=== PATIENT | female | born 1960 | race Caucasian/White ===

== ENCOUNTER 2018-10-30 09:55 | Outpatient (REF) | payer MEDICAID, SELFPAY ==
[2018-10-30 13:16] LABS: Abs Immature Grans 0.01 k/cumm (0.0-0.09); Absolute Basophil Count 0.04 k/cumm (0.0-0.2); Absolute Eosinophil Count 0.23 k/cumm (0.0-0.7); Absolute Lymphocyte Count 2.51 k/cumm (1.2-3.4); Absolute Monocyte Count 0.58 k/cumm (0.11-0.7); Absolute Neutrophil Count 2.27 k/cumm (1.2-6.7); Basophils % 0.7; Eosinophils % 4.1; HCT 39.4 % (36.0-46.0); HGB 12.7 g/dL (12.0-15.5); Immature Grans % 0.2; Lymphocytes % 44.5; Mean Corp. HGB Concentration 32.2 g/dL (32.0-36.0); Mean Corpuscular Hemoglobin 30.2 pg (27.0-33.0); Mean Corpuscular Volume 93.8 fL (80-95); Mean Platelet Volume 10.2 fL (8.0-11.0); Monocytes % 10.3; Neutrophils % 40.2; Platelet Count 311 x1000/uL (130-400); RBC Distribution Width 13.8 % (11.7-14.6); White Blood Cell Count 5.64 k/cumm (4.4-10.8)
[2018-10-30 13:50] LABS: ALT 17 U/L (12-78); AST 11 U/L (15-37); Alkaline Phosphatase 50 U/L (46-116); BUN 18 mg/dL (7-18); Bilirubin, Total 0.4 mg/dL (0.2-1.0); CREATININE 0.81 mg/dL (0.55-1.02); Calcium 9.4 mg/dL (8.5-10.1); Chloride 105 mmol/L (98-107); Glucose 96 mg/dL (70-100); Potassium 4.2 mmol/L (3.5-5.1); Sodium 139 mmol/L (136-145); TSH (W/Ref FT4) 3.15 uIU/mL (0.358-3.74); Total Protein 6.8 g/dL (6.4-8.2)
== END 2018-10-30 10:15 ==
LOC: NCHCN 09:55
PROVIDERS: PCP Nurse Practitioner Family; Visit Provider Nurse Practitioner Family
DX: E03.9 Hypothyroidism, unspecified (principal); D64.9 Anemia, unspecified; D47.3 Essential (hemorrhagic) thrombocythemia
CPT/HCPCS: 80053; 84443; 85025

== ENCOUNTER 2018-10-30 10:14 | Outpatient (CLI) | payer MEDICAID, SELFPAY ==
--- NOTE | 2018-10-30 10:00 | DI.RAD_ITS ---
SYMPTOMS/DIAGNOSIS: CERVICALGIA, M54.2 CERVICAL SPINE: Odontoid, AP, lateral and bilateral oblique views. The odontoid is intact. The lateral masses are well aligned. There is normal alignment of the cervical spine. Mild disc space narrowing is seen at C 4 - 5 and C 5 - 6. Small endplate osteophytes are seen at C 4 - 5 and C 5 - 6 degenerative changes of the facet joints are present. There is very mild narrowing of the right neural foramen at C 4 - 5. No acute fractures or subluxations are seen. The prevertebral soft tissues are unremarkable. IMPRESSION: Mild degenerative changes in the cervical spine.
== END 2018-10-30 10:34 ==
PROVIDERS: PCP Nurse Practitioner Family; Visit Provider Nurse Practitioner Family
DX: M54.2 Cervicalgia (principal); M50.321 Other cervical disc degeneration at C4-C5 level; M50.322 Other cervical disc degeneration at C5-C6 level; M47.812 Spondylosis without myelopathy or radiculopathy, cervical region; E03.9 Hypothyroidism, unspecified; D64.9 Anemia, unspecified; D47.3 Essential (hemorrhagic) thrombocythemia
CPT/HCPCS: 80053; 72050; 84443; 85025

== ENCOUNTER 2018-11-18 00:47 | Outpatient (CLI) | payer MEDICAID, SELFPAY ==
--- NOTE | 2018-11-18 16:47 | DI.MAMMO_ITS ---
SYMPTOM/DIAGNOSIS: SCREENING MAMMO Z12.31 MAMMOGRAM: Mammograms were interpreted according to the usual protocol including computer analysis with CAD system, tomosynthesis and C view imaging. The breast tissue is of moderate radiodensity. There is no mass. There are no suspicious calcifications and there has been no significant interval change when compared with prior images. SUMMARY: No evidence of malignancy, Category 1. Yearly screening mammography is recommended. Breast density catebory B. MQSA ASSESSMENT OF FINDINGS: Negative. Category 1. Patient will receive a letter notifying them of these results. BI-RADS category B. There are scattered areas of fibroglandular density.
== END 2018-11-18 01:07 ==
PROVIDERS: PCP Nurse Practitioner Family; Visit Provider Nurse Practitioner Family
DX: Z12.31 Encounter for screening mammogram for malignant neoplasm of breast (principal)
CPT/HCPCS: 77063; 77067

== ENCOUNTER 2019-06-19 14:55 | Emergency (ER) | payer MEDICAID, SELFPAY ==
[2019-06-19 15:00] VITALS: BP 146/82; PULSE 89; RESP 18; TEMP 36.6; O2SAT 99
[2019-06-19 15:18] LABS: Bilirubin Negative (Negative); Blood Moderate (Negative); Clarity Cloudy (Clear); Glucose Negative (Negative); Ketones 40 mg/dL (Negative); Leukocyte Esterase Large (Negative); Nitrite Negative (Negative); Urobilinogen 0.2 EU/dL (Up TO 0.2)
--- NOTE | 2019-06-19 15:19 | ED.GENADUL_ITS ---
Discharge Plan Disposition Patient Disposition: HOME Condition: Stable Discharge Details Chief Complaint: Urinary Clinical Impression: UTI (urinary tract infection) Primary Care Provider: Rip Isbell ED Provider: Braden Barrios Home Meds and New Rx's Prescriptions: New phenazopyridine [Pyridium] 100 mg tablet 100 mg PO TID 2 Days Qty: 6 RF: 0 cephalexin 500 mg capsule 500 mg PO TID 7 Days Qty: 21 RF: 0 No Action fluticasone propion-salmeterol [Advair Diskus] 250-50 mcg/dose Blister With Device 1 inh INHALATION BID RF: 0 cetirizine 10 mg Tablet 10 mg PO DAILY PRNRF: 0 ibuprofen [IBU] 800 mg Tablet 800 mg PO TID PRNRF: 0 omeprazole 40 mg Capsule,Delayed Release(Dr/Ec) 40 mg PO DAILY RF: 0 bupropion HCl [Wellbutrin SR] 150 MG tablet extended release 12 hr 150 mg PO BID RF: 0 buspirone 15 MG tablet 15 mg PO BID RF: 0 Spiriva with HandiHaler 18 MCG capsule, w/inhalation device 18 mcg Inhalation DAILY RF: 0 albuterol sulfate [Ventolin HFA] 8 GM HFA aerosol inhaler 1 - 2 puff Inhalation Q6H PRN PRNRF: 0 acetaminophen [Tylenol Extra Strength] 500 MG tablet 1,000 mg PO PRN PRNRF: 0 levothyroxine [Synthroid] 50 MCG tablet 50 mcg PO DAILY AM RF: 0 Discharge Instructions Instructions: Urinary Tract Infection in Women (ED) Additional Instructions: May continue small, frequent sips of fluids to maintain hydration. Please take antibiotics as prescribed. May use the prescribed Pyridium as needed for burning and discomfort over 2 days time. Return to the emergency department develop back pain, fever, vomiting, or any other acute concerns. Medical Decision Making 58-year-old female with history of previous urinary tract infections. She pres ents with 5 days of increased frequency and burning with urination that is worsening. She denies fever, back pain, vomiting. Her vital signs are reassuring. Her exam is unremarkable. Urinalysis obtained and consistent with UTI. Will treat a course of Keflex as well as Pyridium. She is stable and appropriate for outpatient management. HPI General Mode of arrival: ambulatory . Date/Time Provider Initiated Documentation: 06/19/19 15:13 . Limitations to Documentation: no limitations . Information obtained by: patient . History of Present Illness 58 year old F presents to the emergency department with the chief complaint of Burning and urgency of urine for 5 days, described as mild, and is localized to the pelvis. Patient reports no radiation. Patient started experiencing this day(s) and it has been constant. No relieving factors improve symptom(s), No exacerbating factors reported . Patient did receive the following treatments prior to arrival, none Related Data Home Medications Medication Instructions Recorded Confirmed Spiriva with HandiHaler 18 mcg INHALATION DAILY tab-cap 06/16/13 06/19/19 bupropion HCl [Wellbutrin SR] 150 mg PO BID tab-cap 06/16/13 06/19/19 buspirone 15 mg PO BID tab-cap 06/16/13 06/19/19 albuterol sulfate [Ventolin HFA] 1 - 2 puff INHALATION Q6H PRN PRN 09/13/13 06/19/19 inhaler acetaminophen [Tylenol Extra 1,000 mg PO PRN PRN 08/12/16 06/19/19 Strength] levothyroxine [Synthroid] 50 mcg PO DAILY AM 11/04/16 06/19/19 cetirizine 10 mg PO DAILY PRN 02/09/19 06/19/19 fluticasone propion-salmeterol 1 inh INHALATION BID 02/09/19 06/19/19 [Advair Diskus] ibuprofen [IBU] 800 mg PO TID PRN 02/09/19 06/19/19 omeprazole 40 mg PO DAILY 02/09/19 06/19/19 cephalexin 500 mg PO TID 7 Days #21 cap 06/19/19 phenazopyridine [Pyridium] 100 mg PO TID 2 Days #6 tab 06/19/19 Previous Rx's Medication Instructions Recorded cephalexin 500 mg PO TID 7 Days #21 cap 06/19/19 phenazopyridine [Pyridium] 100 mg PO TID 2 Days #6 tab 06/19/19 Allergies Allergy/AdvReac Type Severity Reaction Status Date / Time codeine AdvReac Severe Nausea/Head Unverified 06/19/19 15:02 ache iron AdvReac nausea/vomi Unverified 06/19/19 15:02 ting pramipexole di-HCl AdvReac decreased Unverified 06/19/19 15:02 [From Mirapex] sexual function ropinirole HCl [From Requip] AdvReac nausea/vomi Unverified 06/19/19 15:02 ting/headac he perfumes AdvReac SOB Uncoded 06/19/19 15:02 General Stated Complaint: Urinary SHIRIN: 4 Review of Systems Narrative: No vomiting or back pain. States that she is otherwise been well. No difficulty breathing. [facility] Medical History Abnormal cervical Papanicolaou smear (Acute) Acute reaction to situational stress (Acute) Allergic rhinitis Anemia (Chronic) Cervicalgia (Acute) COPD (chronic obstructive pulmonary disease) Dental caries (Acute) Depression with anxiety (Acute) GERD (gastroesophageal reflux disease) (Chronic) Goiter (Acute) Knee pain, chronic (Acute) Left hip pain (Acute) Lumbar back pain (Acute) TAYE (obstructive sleep apnea) (Chronic) Periodic limb movement Thrombocytosis (Acute) Unspecified hemorrhoids with other complication (Acute) Vertigo (Acute) Surgical History H/O partial thyroidectomy (Acute) History of carpal tunnel release of both wrists (Acute) Hx of cataract surgery (Chronic) Hx of section (Chronic) Hx of tonsillectomy (Chronic) S/P correction of deviated nasal septum (Acute) Social History (Updated 02/15/19 @ 12:00 by Celia Cardenas RN) Smoking/Tobacco Use Status: Former Tobacco Use Alcohol Intake: never Drug use: Never Substance use type: does not use Household members: spouse Housing: house Number of Children: 1 current occupation: [employer] What is your relationship status?: Panel score (0-1 are the most socially isolated patients): 1 What type of physical activity do you participate in: none Do you feel safe at home: Yes Do you feel safe in your relationship?: Yes Exam Narrative Exam Narrative: GEN: awake, alert, oriented 3. Pleasant, well groomed, interactive. HEAD: Normocephalic, atraumatic ENT: Mucous membranes moist, oropharynx unremarkable, External ear exam unremarkable EYES: PERRL, EOMI NECK: Full ROM, no CORRINE, no menigismus CHEST/RESP: Nontender, clear to auscultation bilateral, no wheeze/rhonchi/rales CARDIOVASCULAR: RRR, no murmur, rub gertrude. 2+ Rad pulse bilateral ABDOMEN: Soft, nontender, no mass. +Bowel sounds EXT: Full ROM, no edema, no rash Neuro: Grossly normal neurologic exam, conversant, interactive. Psych: Speech fluent, thoughts congruent, affect normal Course Vital Signs Vital signs: Vital Signs Temperature 36.6 C 06/19/19 15:00 Pulse 89 06/19/19 15:00 Respiratory Rate 18 06/19/19 15:00 Blood Pressure 146/82 H 06/19/19 15:00 Pulse Oximetry 99 06/19/19 15:00 Temperature 36.6 C 06/19/19 15:00 Temperature Source Skin 06/19/19 15:00 Pulse 89 06/19/19 15:00 Respiratory Rate 18 06/19/19 15:00 Respiratory Effort Non-Labored 06/19/19 15:04 Blood Pressure 146/82 H 06/19/19 15:00 Blood Pressure Position Sitting 06/19/19 15:00 Pulse Oximetry 99 06/19/19 15:00 Oxygen Delivery Method Room Air 06/19/19 15:00 Oxygen Flow Rate 0 06/19/19 15:00 Pain Level 8 06/19/19 15:00
[2019-06-19 15:29] LABS: WBC >50 HPF (0-5)
[2019-06-19 15:30] LABS: Bacteria Many HPF (Negative); C & S Indicated? Yes; Crystals Negative HPF (Negative)
== END 2019-06-19 15:38 | disposition home or self-care (01) ==
PROVIDERS: Emergency Provider Emergency Medicine; PCP Nurse Practitioner Family
DX: N39.0 Urinary tract infection, site not specified (principal); B96.20 Unspecified Escherichia coli [E. coli] as the cause of diseases classified elsewhere; Z87.440 Personal history of urinary (tract) infections; J44.9 Chronic obstructive pulmonary disease, unspecified; Z87.891 Personal history of nicotine dependence
CPT/HCPCS: 87077; 99283; 81003; 81015; 87086; 87186

== ENCOUNTER 2019-12-27 11:18 | Outpatient (REF) | payer MEDICAID, SELFPAY ==
[2019-12-27 19:04] LABS: HCT 39.2 % (36.0-46.0); HGB 12.6 g/dL (12.0-15.5); Mean Corp. HGB Concentration 32.1 g/dL (32.0-36.0); Mean Corpuscular Hemoglobin 30.2 pg (27.0-33.0); Platelet Count 324 x1000/uL (130-400); RBC 4.17 m/cumm (4.00-5.20); RBC Distribution Width 13.6 % (11.7-14.6); White Blood Cell Count 5.81 k/cumm (4.4-10.8)
[2019-12-27 19:23] LABS: ALT 17 U/L (14-59); AST 13 U/L (15-37); Albumin 3.9 g/dL (3.4-5.0); Alkaline Phosphatase 47 U/L (46-116); Anion Gap 9.5 mmol/L (3-11); BUN 19 mg/dL (7-18); Bilirubin, Total 0.4 mg/dL (0.2-1.0); CO2 25.5 mmol/L (21.0-32.0); CREATININE 0.81 mg/dL (0.55-1.02); Chloride 110 mmol/L (98-107); Glucose 93 mg/dL (74-106); Magnesium 1.8 mg/dL (1.8-2.4); Potassium 3.9 mmol/L (3.5-5.1); Sodium 145 mmol/L (136-145); TSH (W/Ref FT4) 1.41 uIU/mL (0.36-3.74); Total Protein 6.6 g/dL (6.4-8.2)
== END 2019-12-27 11:38 ==
LOC: NCHCN 11:18
PROVIDERS: PCP Nurse Practitioner Family; Visit Provider Nurse Practitioner Family
DX: E03.9 Hypothyroidism, unspecified (principal); G47.61 Periodic limb movement disorder
CPT/HCPCS: 80053; 85027; 83735; 84443

== ENCOUNTER 2020-08-14 13:03 | Outpatient (REF) | payer MEDICAID, SELFPAY ==
--- NOTE | 2020-08-14 11:30 | PAPFT_PTH ---
PATIENT: Lyla Payne LOC: [facility] U#:[id number] AGE/SX: 59/F ROOM: RE08/14/[address]: Rip Isbell : 1960 BED: DIS: 08/14/2020 SPEC #: [id number] RECD: 08/14/20 17:16 STATUS: JONAS REQ #: [id number] JAYLEN: 08/14/20 11:[address]: Rip Isbell DEPT: [facility] Cytology RECD BY: Nataliia Dial Tissues: 1 - CX/ENDOCX FOR PAP SMEARS Procedures: PAP THIN PREP/UVM Screening HPV DNA PROBE Comments: [id number]
[2020-08-14 15:58] LABS: HGB 12.4 g/dL (11.2-15.7); MCH 29.7 pg (27.0-33.0); MCHC 31.8 % (32.0-36.0); MCV 93.3 fL (80-95); MPV 10.5 fL (8.0-11.0); Platelet Count 305 10^3/uL (130-400); RBC 4.18 10^6/uL (3.93-5.22); RDW 13.2 % (11.7-14.6); RDW-SD 45.3 fL
[2020-08-14 16:10] LABS: Bilirubin Negative (Negative); Blood Small (Negative); Clarity Clear (Clear); Glucose Negative (Negative); Ketones Negative (Negative); Leukocyte Esterase Trace (Negative); Nitrite Negative (Negative); Urobilinogen 0.2 EU/dL (Up TO 0.2)
[2020-08-14 16:19] LABS: ALT 18 U/L (14-59); AST 13 U/L (15-37); Alkaline Phosphatase 49 U/L (46-116); Anion Gap 9.4 mmol/L (3-11); BUN 21 mg/dL (7-18); Bilirubin, Total 0.4 mg/dL (0.2-1.0); CO2 26.6 mmol/L (21.0-32.0); CREATININE 0.8 mg/dL (0.55-1.02); Calcium 9.2 mg/dL (8.5-10.1); Chloride 108 mmol/L (98-107); Glucose 112 mg/dL (74-106); Sodium 144 mmol/L (136-145); TSH (W/Ref FT4) 1.76 uIU/mL (0.36-3.74); Total Protein 6.9 g/dL (6.4-8.2)
[2020-08-14 16:32] LABS: Bacteria Negative HPF (Negative); Crystals Negative HPF (Negative); Epithelial Cells Few HPF (Negative); Mucus Negative (Negative); Other Cells Rare Renal (Negative); RBC 0-2 HPF (0-2); WBC 0-2 HPF (0-5)
[2020-08-14 16:33] LABS: C & S Indicated? Yes; Casts Negative LPF (Negative)
[2020-08-15 10:44] LABS: HIV-1/2 Ag & Ab Screen Negative (Negative)
[2020-08-15 10:54] LABS: Hepatitis C Ab w Rflx HCV PCR Negative (Negative)
== END 2020-08-14 13:04 | disposition home or self-care (01) ==
LOC: NCHCN 13:03
PROVIDERS: PCP Nurse Practitioner Family; Visit Provider Nurse Practitioner Family
DX: Z12.4 Encounter for screening for malignant neoplasm of cervix (principal); Z11.51 Encounter for screening for human papillomavirus (HPV); Z00.00 Encounter for general adult medical examination without abnormal findings; D47.3 Essential (hemorrhagic) thrombocythemia; E03.9 Hypothyroidism, unspecified; Z68.31 Body mass index [BMI] 31.0-31.9, adult; Z11.59 Encounter for screening for other viral diseases; Z11.4 Encounter for screening for human immunodeficiency virus [HIV]; R82.998 Other abnormal findings in urine
CPT/HCPCS: 80053; 85027; 86803; 87389; 88142; 81003; 81015; 84443; 87086; 87624

== ENCOUNTER 2021-07-04 01:03 | Outpatient (CLI) | payer MEDICAID, SELFPAY ==
--- NOTE | 2021-07-04 14:02 | DI.US_ITS ---
APPROVED REPORT EXAM: Comprehensive 2D, Doppler, and color-flow Echocardiogram Patient Location: Out-Patient Applications Administrator: Zaynab Puckett RDCS (AE) Indications: Heart Murmur Other Information Study Quality: Adequate Conclusion Normal left ventricular wall thickness and chamber size. Estimated ejection fraction is 60%. Wall m otion is normal Normal right ventricular size and systolic function Both atria are normal in size Trileaflet aortic valve without stenosis or regurgitation Moderate mitral annular calcification. Moderate mitral regurgitation Normal tricuspid valve with trace regurgitation. Right ventricular systolic pressure could not be es timated Mildly dilated ascending aorta measuring 3.62 cm Wall motion Left Ventricle The left ventricle is normal size. The left ventricular systolic function is normal. The left ventric ular ejection fraction is within the normal range. There is normal left ventricular wall thickness. T here is normal LV segmental wall motion. There is no ventricular septal defect visualized. LVEF is 60 %. Right Ventricle The right ventricle is normal size. The right ventricular systolic function is normal. Atria The left atrium size is normal. The right atrium size is normal. The interatrial septum is intact wit h no evidence for an atrial septal defect. Aortic Valve The aortic valve is normal in structure. Aortic valve is trileaflet. There is no aortic valvular sten osis. No aortic regurgitation is present. Mitral Valve Moderate mitral annular calcification. No evidence of mitral valve stenosis. Moderate mitral regurgit ation. Mitral regurgitation jet is eccentrically directed. Tricuspid Valve The tricuspid valve is normal in structure. There is no tricuspid valve stenosis. Trace tricuspid reg urgitation. Pulmonic Valve The pulmonary valve is normal in structure. There is no pulmonic valvular stenosis. Trace pulmonic re gurgitation. Great Vessels The aortic root is normal in size. The ascending aorta is mildly dilated. Aortic arch is normal in ca liber. IVC is normal in size and collapses >50% with inspiration. Pericardium There is no pericardial effusion. 2D Dimensions IVSD d PLAX 0.89 cm F: 0.6-1.0 LV Vol A2C d MOD 95.6 mL LVPW d PLAX 0.89 cm F: 0.6 - 1.0 LV Vol A4C d MOD 120.5 mL LVID d PLAX 4.70 cm F: 3.8 - 5.2 LA vol/ BSA A2C s A-L 40.0 mL/m2 LVDs 3.20 cm F: 2.2 - 3.5 LA vol/ BSA A4C s A-L 33.1 mL/m2 Ao Root d 2.92 cm F: 2.7 - 3.3 LA Vol/ BSA Biplane s A-L 37.0 mL/m2 RA Area A4C 9.55 cm2 LA Area A4C s MOD 17.94 cm2 RA Vol/ BSA A4C s A-L 10.9 mL/m2 LA Area A2C s MOD 20.05 cm2 Ao Asc Diam d 3.62 cm F: 2.3 - 3.1 LV EF A4C MOD 58.5 % LV EF Teichholz 59.8 % LV EF A2C MOD 59.4 % LVEF (Cabrales's) 57.44 % F: 54 - 74 LV EF Biplane MOD 57.4 % LV Volume 89.21 mL F: 46 - 106 SV 63.24 mL LV Volume Index 55.40 mL/m2 F: 29 - 61 SV Index 39.24 mL/m2 LV Vol Biplane MOD 110.1 mL FS 31.75 % M-Mode TAPSE 2.55 cm (M/F) >1.7 LV Diastology MV E' medial 0.088 (>0.07 m/s) E/A Ratio 1.1 LV E/e MED 7.85 (<14) MV E Vmax 0.69 (0.4-1.3 m/s) MV E' lateral 0.087 (>0.1 m/s) MV A Vmax 0.65 (0.4-1.3 m/s) LV E/e LAT 7.95 (<14) MV E/A Ratio 1.01 MV E/E' medial 7.88 MV E/E' lateral 7.99 Aortic Valve LVOT Area 3.40 cm2 AoV Area Vmax 2.65 cm2 LVOT Vmax 1.01 m/s AoV Area/ BSA (Vmax) 1.65 cm2/m2 LVOT Mean Gasper. 0.59 m/s ABHILASH Mean Gasper. 2.18 cm2 LVOT Peak Grad 4.1 mmHg ABHILASH Mean Gasper. Index 1.36 cm2/m2 LVOT Mean Grad 1.7 mmHg LVOT VTI 0.181 m LVOT Diam s 2.05 cm AoV Vmax 1.29 m/s Velocity Ratio 0.78 AoV Mean Gasper. 0.91 m/s AoV Peak Grad 6.7 mmHg LVOT SV 61.68 mL AoV Mean Grad 3.8 mmHg AoV VTI 0.245 m AoV Area VTI 2.51 cm2 AoV Area/ BSA (VTI) 1.56 cm/m2 Mitral Valve MV DT 260 (160-240 msec) MR PISA Radius 0.47 cm MV PHT 75 msec MR Aliasing Velocity 0.35 m/s MV Area PHT 2.92 cm2 MR PISA 1.40 cm2 MV VTI 0.251 m MV VTI Annulus 0.266 m MV Area VTI 2.62 (4.0-6.0 cm2) Pulmonary Valve PV Vmax 1.35 (0.5-1.5 m/s) RVOT Peak Gr. 3.10 mmHg PV Peak Grad 7.3 mmHg RVOT Mean Gr. 1.60 mmHg PV Mean Grad 3.0 mmHg RVOT VTI 0.193 m PV VTI 0.223 m RVOT Vmax 0.88 m/s
== END 2021-07-04 01:23 ==
PROVIDERS: PCP Nurse Practitioner Family; Visit Provider Nurse Practitioner
DX: R01.1 Cardiac murmur, unspecified (principal); I34.0 Nonrheumatic mitral (valve) insufficiency; I77.810 Thoracic aortic ectasia
CPT/HCPCS: 93306

== ENCOUNTER 2021-08-21 17:00 | Outpatient (REF) | payer MEDICAID, SELFPAY ==
[2021-08-21 21:32] LABS: HCT 39.5 % (36.0-46.0); HGB 12.3 g/dL (11.2-15.7); MCH 29.3 pg (27.0-33.0); MCHC 31.1 % (32.0-36.0); MPV 10.1 fL (8.0-11.0); Platelet Count 313 10^3/uL (130-400); RDW 13.1 % (11.7-14.6)
[2021-08-21 22:01] LABS: D-Dimer 793 ng/mlFEU (<500)
== END 2021-08-21 17:01 | disposition home or self-care (01) ==
LOC: LBN 17:00
PROVIDERS: PCP Nurse Practitioner Family; Visit Provider Nurse Practitioner Family
DX: M79.89 Other specified soft tissue disorders (principal); M79.662 Pain in left lower leg
CPT/HCPCS: 85027; 85379

== ENCOUNTER → 2021-08-22 09:08 | Outpatient (CLI) | payer MEDICAID, SELFPAY ==
--- NOTE | 2021-08-22 | DI.US_ITS ---
Exam(s) US LOWER EXTREMITY VENOUS LT EXAM: US LOWER EXTREMITY VENOUS LT CLINICAL HISTORY: PAIN IN LT LOWER LEG, M79.662, SWELLING OF LT LEG, M79.89 TECHNIQUE: Grayscale, color, and doppler imaging of the deep venous system of the left lower extremi ty was performed. COMPARISON: US US ECHOCARDIOGRAM from 07/04/2021 FINDINGS: There is no evidence of intraluminal thrombus and there is normal compression and augmentation demons trated within the common femoral vein, femoral vein, and popliteal vein. In the ipsilateral calf the interrogated veins also exhibit normal compression/ augmentation properti es. The ipsilateral saphenofemoral junction is patent. IMPRESSION: 1. No evidence of DVT in the left lower extremity. DATA REPOSITORY:
--- NOTE | 2021-08-22 10:42 | DI.RAD_ITS ---
Exam(s) XR KNEE LT 3V AP,LAT,BLAIRE EXAM: XR KNEE LT 3V AP,LAT,BLAIRE CLINICAL HISTORY: PAIN IN LT LOWER LEG, M79.662, SWELLING OF LT LEG, M79.89. TECHNIQUE: 2D digital imaging was performed. COMPARISON: No exams were available for comparison FINDINGS: Four views No evidence of fracture nor obvious joint effusion. There is [id number] narrowing of the lateral compartment with an element of valgus deformity. Also [id number]-[id number] narrowing of the patellofemoral compartment. Medial compartment exhibits normal height . There is a nonexpansile peripherally sclerotic cyst in the medial femoral condyle which is not imm ediately subarticular. IMPRESSION: Significant degenerative changes lateral patellofemoral compartments. Although there is no narrowing of the medial compartment, there is a peripherally sclerotic 1.9 x1.0 cm lucent bone lesion in the m edial femoral condyle (not immediately subarticular), this having benign appearance. DATA REPOSITORY: RADIATION DOSE DELIVERED:
--- OUTSIDE RECORDS SUMMARY | 2021-08-23 15:04 | XMS_ITS ---
:1960 Author Care Team Providers Name Role Phone BON LANI Primary Care Provider [phone] BON LANI Referring Provider [phone] Allergies Code Code System Name Reaction Severity Status Onset 2669 RxNorm Codeine ? ? Active ? 95733 RxNorm Iron ? ? Active ? Perfume ? ? Active ? 056035 RxNorm Requip ? ? Active ? Notes: MIRIPEX Medications Name Status Start Date Stop Date ? ? Advair Diskus 250 mcg-50 mcg/dose powder for inhalation Active ? Not available Inhale 1 puff twice a day by inhalation route. bupropion HCl 150 mg tablet,12 hr sustained-release(smoking dete rrent) Active ? Not available Take 1 tablet twice a day by oral route. cetirizine 10 mg tablet Active ? Not avai lable Take 1 tablet every day by oral route. Flonase Allergy Relief 50 mcg/actuation nasal spray,suspension A ctive ? Not available Proctor 1 spray every day by intranasal route. ibuprofen 800 mg tablet Active ? Not avai lable Take 1 tablet 3 times a day by oral route. levothyroxine 50 mcg tablet Active ? Not available Take 1 tablet every day by oral route. omeprazole 40 mg capsule,delayed release Active ? Not available Take 1 capsule every day by oral route. Proventil HFA 90 mcg/actuation aerosol inhaler Active ? Not available Inhale 2 puffs every 4 hours by inhalation route. rizatriptan 5 mg disintegrating tablet Active ? Not available PLACE 1 TABLET (5 MG) ON TOP OF TONGUE, ALLOW TO DISSOLVE THEN SWALLOW BY TRANSLINGUAL ROUTE ONCE, MAY REPEAT EVERY 2 HRS; MAX 30 MG/24HRS Spiriva with HandiHaler 18 mcg and inhalation capsules Active ? Not available Inhale 1 capsule every day by inhalation route. Problems Name Status Onset Date Source ? Thrombocytosis Active 08/25/2020 ? Hypothyroidism Active 08/25/2020 ? Body Mass Index 30+ - Obesity Active 08/25/2020 ? Anxiety Active 08/25/2020 ? Depressive Disorder Active 08/25/2020 ? Periodic Limb Movement Disorder Active 08/25/2020 ? Carpal Tunnel Syndrome Active 08/25/2020 ? Hemorrhoids Active 08/25/2020 ? Allergic Rhinitis Active 08/25/2020 ? Chronic Obstructive Lung Disease Active 08/25/2020 ? Dental Caries Active 08/25/2020 ? Gastroesophageal Reflux Disease Active 08/25/2020 ? 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 Sleep Apnea Active 08/25/2020 ? Heart Murmur Active 08/25/2020 ? Abnormal Cervical Papanicolaou Smear Active 08/25/2020 ? Thyroidectomy Active 08/25/2020 ? History of Back Pain Active 08/25/2020 ? Knee Pain Active 08/25/2020 ? 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 Acquired Left Hallux Valgus Active 08/28/2020 ? Acquired Right Hallux Valgus Active 08/28/2020 ? Pain in Left Foot Active 08/28/2020 ? Pain in Right Foot Active 08/28/2020 ? Osteoarthritis of Left Foot Active 08/28/2020 ? Osteoarthritis of Right Foot Active 08/28/2020 ? 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 Procedures Date Name Performed by ? 08/25/2020 XR, Foot, 3 or More View [facility] - Radiology [address] [place] [address] [id number] (Work Place) 08/25/2020 XR, Foot, 3 or More View [facility] - Radiology [address] [place] [address] [id number] (Work Place) Results Lab Results None recorded. Past Encounters 2020 Osteoarthritis of Left Foot; Osteoarthri tis of Right Foot; Pain in Left Foot; Pain in Right Foot Donte Holder DPM: [address] [place] [phone], Ph. 08/28/2020 Osteoarthritis of Right Foot; Osteoarthr itis of Left Foot; Pain in Right Foot; Pain in Left Foot; Acquired Right Hallux Valgus; Acquired Left Hallux Valgus; Metatarsus Adductus; Left Metatarsus Adductus Donte Holder DPM: [address] [place] [phone], Ph. Social History Tobacco Smoking Status Never Smoker Vaccine List None recorded. Plan of Care Reminders Provider Appointments None ? ? recorded. Lab None ? ? recorded. Referral None ? ? recorded. Procedures None ? ? recorded. Surgeries None ? ? recorded. Imaging None ? ? recorded. Vitals 2020 01:15PM FOLLOW UP Height 149.86 cm 08/28/2020 01:30PM NEW PATIENT Height Weight BMI Blood Pressure 149.86 cm 70.31 kg 31.3 kg/m2 124/62 mm[Hg]
== END ==
PROVIDERS: PCP Nurse Practitioner Family; Visit Provider Nurse Practitioner Family
DX: M79.89 Other specified soft tissue disorders (principal); M79.662 Pain in left lower leg; M17.12 Unilateral primary osteoarthritis, left knee
CPT/HCPCS: 73562; 93971

== ENCOUNTER → 2021-10-16 01:18 | Outpatient (CLI) | payer MEDICAID, SELFPAY ==
--- NOTE | 2021-10-16 12:15 | DI.MRI_ITS ---
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 COMPARISON: CR XR KNEE LT 3V AP,LAT,BLAIRE from 08/22/2021 FINDINGS: EFFUSION: There is a moderate-sized joint effusion. There is no cyst in the popliteal fossa. MARROW:There is no evidence of fracture nor prominent bone contusion. There is a large a subarticula r peripherally sclerotic well-defined cyst in the posterior weight-bearing surface of the medial femo ral condyle corresponding to what was seen on recent plain radiographs, this measuring 1.6 cm cranioc audal by 1.1 cm AP by 1.1 cm wide and exhibits very thin internal septations and no surrounding bone edema. There is another slightly smaller similar finding just above this level in the medial condyle and a few tiny adjacent degenerative subarticular cysts also noted. PATELLOFEMORAL COMPARTMENT: The quadriceps tendon is intact. The patellar ligament is intact. There is full-thickness thinning of the retropatellar cartilage over the mid-lateral facet and modera te thinning over the smaller medial facet. There is also full-thickness cartilage loss over the ante rior weight-bearing surface of the lateral femoral condyle in the region of the patellofemoral compar tment. Also marginal osteophytes.There is some subarticular edema in the posterior aspect of the pat camila at the level of the lateral facet. There are no obvious patellar retinacular tears. CRUCIATE LIGAMENTS: Although there is no high-grade tear of the anterior cruciate ligament, there is signal abnormality throughout its length consistent with degenerative change in this structure as wel l as some partial intrasubstance tearing but no high full but no full-thickness tear.The posterior cr uciate ligament is intact MEDIAL COMPARTMENT/MEDIAL MENISCUS: Although there are significant cartilage loss changes over the ar ticular surface of the medial femoral condyle, there does not appear to be an obvious tear of the med ial meniscus and the meniscal root is also intact.There is multilevel cartilage loss over the main we ight-bearing surface of the medial condyle as well as marginal osteophytes. No osteochondral defect but there is the above described large 16 x 11 x 11 millimeter subarticular cyst in the posterior ketty ght-bearing surface of the medial femoral condyle. It is interesting to note that there is relative preservation of cartilage thickness over the exact area of this subarticular bone cyst. Most of the prominent cartilage loss over the medial condyle is anterior to the location of this large subarticul ar cyst. There is no prominent surrounding edema in the marrow around this peripherally sclerotic cyst. There is no detachment of the MCL which is at this level. MEDIAL COLLATERAL LIGAMENT: The main aspect of the MCL is intact. However, there is fluid interposed between the deep and superficial leaves of the posterior aspect of this structure as it tends steamship agent iorly. LATERAL COMPARTMENT/LATERAL MENISCUS: There is advanced cartilage loss over the lateral femoral condy le and marginal osteophytes. There is complex tearing of the lateral meniscus involving both horns.T here is mild subarticular marrow edema and degenerative small subarticular cysts and prominent margin al osteophytes off the outer aspect of the lateral condyle. Also marginal osteophytes off the outer aspect of the lateral tibial plateau. ILIOTIBIAL BAND: Intact LATERAL COLLATERAL LIGAMENT COMPLEX: The fibular collateral ligament is intact. The biceps tendon is intact.Popliteus muscle and tendon are intact. IMPRESSION: 1. Significant osteoarthritic degenerative changes in all 3 compartments as described above including significant cartilage loss and marginal osteophytes in all 3 compartments. Also full-thickness cart ilage loss over the lateral for aspect of the posterior patella and adjacent lateral femoral condyle with prominent marginal osteophytes at this level also evident. 2. There is a large benign-appearing subarticular cyst in the posterior aspect of the medial femoral condyle measuring 11 by 16 x 11 millimeters and exhibiting benign characteristics with thin periphera lly sclerotic rim and no surrounding marrow edema. A few smaller degenerative subarticular cysts are also seen in this region. 3. There is tearing of the lateral meniscus involving both horns. There is no obvious tearing of the medial meniscus evident. 4. Diffuse signal abnormality seen throughout the anterior cruciate ligament consistent with degenera tive changes but there does not appear to be a full-thickness tear of the ACL. There are thinly sept ated cystic structures in the posterior aspect of the joint which are intimately related to the upper aspect of the ACL and most probably consistent with ACL related intra-articular ganglion cysts. The re does not, however, appear to be a full-thickness tear of the anterior cruciate ligament. PCL appears intact. Lateral collateral ligament complex and the iliotibial band are intact. 5. Although the main component of the MCL is intact, there is fluid interposed between the deep and superficial layers of the posterior aspect of the MCL as it extends posteriorly towards the postero m edial corner. There is, however, no tear of the semimembranosus and gracilis tendons in this region. And no obvious tear of the nearby sartorius muscle. 6. Quadriceps and patellar tendons are intact and there are no patellar retinacular tears evident. DATA REPOSITORY:
== END ==
PROVIDERS: PCP Nurse Practitioner Family; Visit Provider Nurse Practitioner Family
DX: M22.2X2 Patellofemoral disorders, left knee (principal); M79.89 Other specified soft tissue disorders; M25.462 Effusion, left knee; M17.12 Unilateral primary osteoarthritis, left knee; M25.862 Other specified joint disorders, left knee; S83.282A Other tear of lateral meniscus, current injury, left knee, initial encounter; S83.242A Other tear of medial meniscus, current injury, left knee, initial encounter
CPT/HCPCS: 73721

== ENCOUNTER → 2021-10-30 01:18 | Outpatient (CLI) | payer MEDICAID, SELFPAY ==
--- NOTE | 2021-10-30 | DI.CT_ITS ---
Exam(s) CT CHEST WO EXAM: CT CHEST WO CLINICAL HISTORY: COPD, J44.9, SMOKER, F17.210, ? NODULES. TECHNIQUE: Multi planar reconstructions were performed. CONTRAST MATERIAL: None COMPARISON: CR CHEST 2 VIEWS PA,LAT from 11/03/2016 FINDINGS: CHEST: LUNGS: There is some atelectasis and mild infiltrate in both the right middle lobe and right lower lo be posterior basal segment. No pleural effusion. In the opposite-left lung there is some scarring i n the medial aspect of the posterior basal segment of the lower lobe. Also some atelectasis in later al basal segment and there is mild infiltrate-atelectasis in the anterior basal segment of the left l ower lobe. There is sparing of the left upper lobe and lingular segment. MEDIASTINUM: There is no obvious hilar nor mediastinal adenopathy. No obvious axillary adenopathy CARDIAC: Heart size is normal. There is no pericardial effusion.Moderate coronary artery calcificati on noted. Also calcified mitral valve VISUALIZED UPPER ABDOMEN: OSSEOUS: There is advanced disc space narrowing T12-L1 level and retrolisthesis of T12 upon L1. IMPRESSION: 1. Bilateral lung findings, as described above, probably benign. Recommend follow-up CT scan in 6 mo nths 2. No pleural effusions nor obvious intrathoracic adenopathy. 3. Lung rads 3-probably benign. Short-term follow-up repeat CT scan in 6 months recommended. RADIATION DOSE DELIVERED: 75.14mGy.cm Total DLP DATA REPOSITORY: All CT scans at this facility are submitted to the National Radiology Data Registry (NRDR) Dose Index Registry (DIR) with the [employer] (A[employer]). RADIATION OPTIMIZATION: All CT scans at this facility use at least one of these dose optimization te chniques: automated exposure control; mA and/or kV adjustment per patient size (includes targeted exa ms where dose is matched to clinical indication); or iterative reconstruction.
== END ==
PROVIDERS: PCP Nurse Practitioner Family; Visit Provider Nurse Practitioner Family
DX: J44.9 Chronic obstructive pulmonary disease, unspecified (principal); F17.201 Nicotine dependence, unspecified, in remission; J98.11 Atelectasis; J98.4 Other disorders of lung
CPT/HCPCS: 71250

== ENCOUNTER 2022-03-04 13:13 | Outpatient (REF) | payer MEDICAID, SELFPAY ==
[2022-03-04 15:49] LABS: HCT 37.8 % (36.0-46.0); HGB 12.3 g/dL (11.2-15.7); MCH 29.9 pg (27.0-33.0); MCHC 32.5 % (32.0-36.0); MCV 92 fL (80-95); MPV 10.3 fL (8.0-11.0); Platelet Count 307 10^3/uL (130-400); RBC 4.11 10^6/uL (3.93-5.22); RDW 13.3 % (11.7-14.6); RDW-SD 45.1 fL; WBC 7.06 10^3/uL (4.4-10.8)
[2022-03-04 16:43] LABS: ALT 16 U/L (14-59); AST 15 U/L (15-37); Albumin 4.1 g/dL (3.4-5.0); Alkaline Phosphatase 54 U/L (46-116); Anion Gap 9.5 mmol/L (3-11); BUN 19 mg/dL (7-18); Bilirubin, Total 0.3 mg/dL (0.2-1.0); CO2 25.5 mmol/L (21.0-32.0); CREATININE 0.7 mg/dL (0.55-1.02); Calcium 9.2 mg/dL (8.5-10.1); Calculated LDL 73 mg/dL (<100); Chloride 108 mmol/L (98-107); Cholesterol 164 mg/dL (<200); Estimated GFR 98.34 (mL/min/1.73m2); Glucose 92 mg/dL (74-106); HDL Cholesterol 59 mg/dL (40-60); Magnesium 1.9 mg/dL (1.8-2.4); Sodium 143 mmol/L (136-145); TSH (W/Ref FT4) 2.19 uIU/mL (0.36-3.74); Total Protein 7.2 g/dL (6.4-8.2); Triglyceride 163 mg/dL (<150)
== END 2022-03-04 13:14 | disposition home or self-care (01) ==
LOC: NCHCN 13:13
PROVIDERS: Visit Provider Nurse Practitioner Family
DX: R00.2 Palpitations (principal); E03.9 Hypothyroidism, unspecified; Z13.220 Encounter for screening for lipoid disorders; Z90.89 Acquired absence of other organs
CPT/HCPCS: 80053; 80061; 85027; 83735; 84443

== ENCOUNTER → 2022-03-27 02:01 | Outpatient (CLI) | payer MEDICAID, SELFPAY ==
--- NOTE | 2022-03-27 | DI.MAMMO_ITS ---
Exam(s) MAMMO SCREENING EXAM: MAMMO SCREENING CLINICAL HISTORY: SCREENING,Z12.39 TECHNIQUE: Mammograms were interpreted according to the usual protocol including computer analysis w [employer] CAD system, tomosynthesis and C-view imaging. COMPARISON: FINDINGS: The breasts are of moderate density with fairly symmetrical distribution of fibroglandular tissue. N o dominant mass or clumped microcalcification is identified in either breast. A well-circumscribed 7 millimeter in diameter retroareolar nodule is noted on the left, unchanged in appearance in comparis on with previous examinations including October 2018. No other significant changes identified compariso n with prior studies. IMPRESSION: No specific evidence of malignancy at this time. Routine screening examinations are suggested at yea rly intervals due to the family history of breast carcinoma. BI-RADS Category 1 - Negative Breast Density - Category B - Scattered areas of fibroglandular density
== END ==
PROVIDERS: Visit Provider Nurse Practitioner Family
DX: Z12.31 Encounter for screening mammogram for malignant neoplasm of breast (principal)
CPT/HCPCS: 77063; 77067

== ENCOUNTER → 2022-03-28 02:42 | Outpatient (CLI) | payer MEDICAID, SELFPAY ==
--- NOTE | 2022-03-28 | ETT_ITS ---
APPROVED REPORT Exam: Exercise Treadmill Patient Location: Out-Patient Room/Bed: Stress Nurse: Caroline Amin RN Ordering Provider:BON TALBERT, Contact Number: [phone] BMI: 29.48 Baseline Rhythm: Sinus w/ 1st degree AV block Indications: Abnormal findings of lung on DI, Occ. Palpitations, MOD Mitral Regurgitation Medical History Medical History: Anemia, COPD, Depression, Anxiety, GERD, TAYE Cardiac Medications: Omeprazole, Spiriva Inhaler Allergies: Ropinirole, perfumes, codeine, iron, pramipexole Cardiac Risk Factors: +family history, Former smoker, Obesity Previous Cardiac Procedures: None Pretest Chest Pain Characteristics: None Exercise History: Sedentary Physical Disabilities: None Lung Sounds: Clear Heart Sounds: +Murmur Stress Test Details Test: Exercise stress testing was performed using a Aroldo protocol. Rest Stress HR Resting HR Supine: 83 bpm Max Heart Rate (APMHR): 159 bpm Resting HR Standin bpm Target HR (85% APMHR): 135 bpm Max HR Achieved: 152 bpm % of APMHR: 95 Recovery HR: 85 bpm HR response to stress: Normal HR response to stress BP Resting BP Supine: 146/82 mmHg Resting BP Standin/84 mmHg Max BP: 166/78 mmHg Recovery BP: 130/76 mmHg BP response to stress: Normal blood pressure response to stress. ECG Resting ECst degree AV block Ectopy: None Stress ECG: Sinus Tachycardia ST Change: No significant ST segment changes noted Arrhythmia: None Recovery ECst degree AV block Recovery ST Change: No significant ST segment changes noted Recovery Arrhythmia: PVC's Comment: flipped T waves 5 minutes into recovery in leads II, III, aVF, V4, V5, V6 Clinical Reason for Termination: Fatigue Stress Symptoms: General Fatigue Exercise duration: 4 min17 sec Highest Stage Reached: Stage 2: 2.5 mph at 12% grade. Exercise capacity: 6.17 METs Corrigan Treadmill Score: 3.2 Rate Pressure Product: 04341 Stress ECG Conclusion 1. Resting electrocardiogram showed first-degree AV block, left ventricular hypertrophy 2. Patient exercised on the Aroldo protocol and completed a workload of 6.17 METS stopping due to fati rosario 3. Normal heart rate and blood pressure response to exercise. Patient achieved 95% of predicted hear t rate for age 4. There was no electrocardiographic evidence of myocardial ischemia at peak exercise. ST segments i n recovery became downsloping, equivocal for ischemia 5. There were no significant dysrhythmias Corrigan Treadmill Score is 3.2 which is Moderate risk. Stress Test Summary STAGE Time (mins) Speed (mph) Grade (%) HR BP SpO2 SYMPTOMS METS Supine 83 146/82 Standing 85 142/84 1 3 1.7 10 143 148/80 92 4.5 1 min recovery 135 164/84 96 3 min recovery 105 166/78 98 6 min recovery 85 130/76 97
== END ==
PROVIDERS: Visit Provider Nurse Practitioner Family
DX: I34.0 Nonrheumatic mitral (valve) insufficiency (principal); R00.2 Palpitations
CPT/HCPCS: 93017

== ENCOUNTER 2022-04-11 11:25 | Outpatient (CLI) | payer MEDICAID, SELFPAY ==
--- NOTE | 2022-04-11 11:15 | RT.EKG_ITS ---
APPROVED REPORT Exam: Resting ECG Reason for Exam: palpitations, NEWMAN Patient Location: O HR:94 bpm ECG Measurements Heart Rate 94 AXIS MI 187 P 60 QRSd 98 QRS 0 QT 371 T 20 QTc 464 Conclusion Sinus rhythm...normal P axis, V-rate 50- 99 Ventricular premature complex...V complex w/ short R-R interval Otherwise normal
== END 2022-04-11 11:26 | disposition home or self-care (01) ==
LOC: DI.CARD 11:28
PROVIDERS: Visit Provider Internal Medicine Cardiovascular Disease
DX: R00.2 Palpitations (principal); R06.09 Other forms of dyspnea; R94.31 Abnormal electrocardiogram [ECG] [EKG]; I49.3 Ventricular premature depolarization
CPT/HCPCS: 93010

== ENCOUNTER 2022-04-15 04:13 | Outpatient (CLI) | payer MEDICAID, SELFPAY ==
[2022-04-15 13:11] LABS: HCT 38.9 % (36.0-46.0); HGB 12.8 g/dL (11.2-15.7); MCH 29.9 pg (27.0-33.0); MCHC 32.9 % (32.0-36.0); MCV 91 fL (80-95); MPV 9.7 fL (8.0-11.0); Platelet Count 293 10^3/uL (130-400); RBC 4.28 10^6/uL (3.93-5.22); RDW 13.3 % (11.7-14.6); RDW-SD 44.2 fL
[2022-04-15 13:38] LABS: Anion Gap 9.5 mmol/L (3-11); BUN 22 mg/dL (7-18); CO2 26.5 mmol/L (21.0-32.0); CREATININE 0.8 mg/dL (0.55-1.02); Calcium 9.2 mg/dL (8.5-10.1); Chloride 106 mmol/L (98-107); Estimated GFR 83.78 (mL/min/1.73m2); Glucose 91 mg/dL (74-106); Potassium 3.7 mmol/L (3.5-5.1); Sodium 142 mmol/L (136-145)
== END 2022-04-15 04:14 | disposition home or self-care (01) ==
LOC: LBO 04:13
PROVIDERS: Visit Provider Student in an Organized Health Care Education/Training Program
DX: M17.12 Unilateral primary osteoarthritis, left knee (principal); Z01.818 Encounter for other preprocedural examination
CPT/HCPCS: 36415; 80048; 85027

== ENCOUNTER 2022-04-15 13:11 | Outpatient (CLI) | payer MEDICAID, SELFPAY ==
--- NOTE | 2022-04-15 13:00 | DI.RAD_ITS ---
Exam(s) XR KNEE LT 1V XR STANDING ALIGNMENT EXAM: XR STANDING ALIGNMENT CLINICAL HISTORY: preop. TECHNIQUE: 2D digital imaging was performed. Standing AP views were performed from the pelvis throu gh the ankles. COMPARISON: CR XR KNEE LT 3V AP,LAT,BLAIRE from 08/22/2021 CR XR KNEE LT 1V from 04/15/2022 FINDINGS: BONES: No acute fracture is present. Leg length discrepancy: The right femoral head projects roughly 15 millimeters superior to the left. JOINTS: Knees: Right: Joint spaces are maintained. There is periarticular spurring greater laterally . Left: Severe narrowing of the lateral femoral tibial joint space and prominent periarticular spurr ing. There is significant valgus angulation. A cystic lesion is again noted in the medial femoral c ondyle. The ankle joints are unremarkable. The right hip is unremarkable. There is mild to moderate periarticular spurring at the left hip join t. There is no significant left hip joint space narrowing. SOFT TISSUE: Mild bilateral lower leg edema. IMPRESSION: Severe degenerative changes of the lateral femoral tibial joint space.. Overall leg length discrepancy. DATA REPOSITORY: RADIATION DOSE DELIVERED:
== END 2022-04-15 13:12 | disposition home or self-care (01) ==
LOC: DIORS 13:12
PROVIDERS: Referring Provider Nurse Practitioner Family; Visit Provider Physician Assistant Surgical
DX: M17.12 Unilateral primary osteoarthritis, left knee (principal)
CPT/HCPCS: 73560; 77073

== ENCOUNTER 2022-04-23 08:30 | Day surgery (SDC) | payer MEDICAID, SELFPAY ==
[2022-04-23] VITALS (14 sets, daily range): BP systolic 82–123; BP diastolic 45–90; PULSE 54–72; RESP 12–19; TEMP 36–36.7; O2SAT 96–100; BMI 29.5
--- NOTE | 2022-04-23 06:18 | ANES.PREOP_ITS ---
General Info Date of Service Date Performed: 04/23/22 Height: 4 ft 11 in Weight: 66.3 kg Body Mass Index (BMI): 29.5 Surgical Procedure: Operation Date: 04/23/22 11:10 Proposed Procedure Side Surgeon p Knee Total Arthroplasty, Cemented PS Left Thai Croft MD Meds Allergies and Home Medications Allergies Allergy/AdvReac Type Severity Reaction Status Date / Time perfume Allergy SOB Verified 04/23/22 08:27 codeine AdvReac Severe Nausea/Head Verified 04/22/22 10:40 ache iron AdvReac nausea/vomi Verified 04/22/22 10:40 ting pramipexole di-HCl AdvReac decreased Verified 04/11/22 14:08 [From Mirapex] sexual function ropinirole HCl [From Requip] AdvReac nausea/vomi Verified 04/22/22 10:40 ting/headac he Home Medication Medication Instructions Recorded bupropion HCl 150 mg tablet,12 hr 150 mg PO BID 06/16/13 sustained-release (Wellbutrin SR) buspirone 15 mg tablet 15 mg PO BID 06/16/13 tiotropium bromide 18 mcg capsule 18 mcg inhalation DAILY 06/16/13 with inhalation device (Spiriva with HandiHaler) levothyroxine 50 mcg tablet 50 mcg PO DAILY AM 11/04/16 (Synthroid) cetirizine 10 mg tablet 10 mg PO DAILY PRN 02/09/19 omeprazole 40 mg capsule,delayed 40 mg PO HS 02/09/19 release rizatriptan 5 mg tablet 5 mg PO ONCE PRN 08/29/21 timolol 0.5 % eye drops 1 drp ophthalmic (eye) DAILY 04/11/22 acetaminophen 500 mg tablet 1,000 mg PO Q8H PRN pain #90 tabs 04/23/22 aspirin 81 mg tablet,delayed 81 mg PO BID 30 days #60 tabs 04/23/22 release celecoxib 200 mg capsule (Celebrex) 200 mg PO BID #30 caps 04/23/22 docusate sodium 100 mg capsule 100 mg PO BID #30 caps 04/23/22 (Colace) gabapentin 300 mg capsule 300 mg PO QHS #14 caps 04/23/22 oxycodone 5 mg tablet 5 mg PO Q4H PRN severe 04/23/22 post-operative pain #18 tabs Current Visit Medications: Current Medications Generic Name Dose Route Start Last Admin Trade Name Jf PRN Reason Stop Dose Admin Acetaminophen 1,000 mg 04/23/22 06:00 Acetaminophen 500 Mg Tab PO 04/23/22 16:00 PREOP LEILANI Celecoxib 400 mg 04/23/22 06:00 Celecoxib 200 Mg Cap PO 04/23/22 16:00 PREOP LEILANI Gabapentin 300 mg 04/23/22 06:00 Gabapentin 300 Mg Cap PO 04/23/22 16:00 PREOP LEILANI Tranexamic Acid 1,000 mg/ 60 mls @ 360 mls/hr 04/23/22 06:00 Sodium Chloride IVPB 04/23/22 16:00 PREOP LEILANI Ringer's Solution 1,000 mls @ 80 mls/hr 04/23/22 06:00 IV 05/22/22 23:59 INFUSION LEILANI Cefazolin Sodium/Dextrose 2 gm in 50 mls @ 100 mls/hr 04/23/22 06:00 Ancef Duplex IVPB 04/23/22 16:00 PREOP [facility] IV Miscellaneous Supplies 1 each 04/23/22 06:00 Iv Access IV 05/22/22 23:59 DIRECTED LEILANI Sodium Chloride 0 ml 04/23/22 06:00 Normal Saline Flush 10 Ml Syr IV 05/22/22 23:59 PRN PRN Sodium Chloride 0 ml 04/23/22 06:00 Normal Saline 10 Ml Vial IJ 05/22/22 23:59 DIRECTED PRN Sterile Water 0 ml 04/23/22 06:00 Water,Injection,Sterile 10 Ml Vial IJ 05/22/22 23:59 DIRECTED PRN PFSH Active Problems Active Problems: Problem Status Onset Code UTI (urinary tract infection) N39.0 Hypothyroid E03.9 Hypotension I95.9 Normocytic anemia D64.9 Bacteremia due to Escherichia coli R78.81 Hypokalemia E87.6 Osteoarthritis of left knee M17.12 Palpitations R00.2 Tobacco dependence F17.200 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 Mitral regurgitation I34.0 Flat feet M21.41, M21.42 H/O thyroidectomy E89.0 Back pain M54.9 Hemorrhoids K64.9 Sleep apnea G47.30 NEWMAN (dyspnea on exertion) R06.09 Preoperative cardiovascular examination Z01.810 Medical History Medical History Abnormal cervical Papanicolaou smear Acute reaction to situational stress Allergic rhinitis Anemia Cervicalgia COPD (chronic obstructive pulmonary disease) Dental caries Depression with anxiety GERD (gastroesophageal reflux disease) Goiter Knee pain, chronic Left hip pain Lumbar back pain TAYE (obstructive sleep apnea) Periodic limb movement Thrombocytosis Unspecified hemorrhoids with other complication Vertigo Surgical History Surgical History (Updated 04/22/22 @ 10:39 by Kimberly Matthews RN) 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 H/O partial thyroidectomy History of carpal tunnel release of both wrists Hx of cataract surgery Hx of section Hx of tonsillectomy S/P correction of deviated nasal septum Tobacco Smoking/Tobacco Use Status: Former Tobacco Use Alcohol Alcohol Intake: never Substance Use Substance use: Never Substance use type: does not use Vital Signs and Lab Results Lab Results Blood Type / Crossmatch: No Data to Display Complete Blood Count: White Blood Count 6.80 10^3/uL (4.4-10.8) 04/15/22 12:54 Red Blood Count 4.28 10^6/uL (3.93-5.22) 04/15/22 12:54 Hemoglobin 12.8 g/dL (11.2-15.7) 04/15/22 12:54 Hematocrit 38.9 % (36.0-46.0) 04/15/22 12:54 Platelet Count 293 10^3/uL (130-400) 04/15/22 12:54 Complete Metabolic Panel: Sodium 142 mmol/L (136-145) 04/15/22 12:54 Potassium 3.7 mmol/L (3.5-5.1) 04/15/22 12:54 Chloride 106 mmol/L (98-107) 04/15/22 12:54 Carbon Dioxide 26.5 mmol/L (21.0-32.0) 04/15/22 12:54 BUN 22 mg/dL (7-18) H 04/15/22 12:54 Creatinine 0.8 mg/dL (0.55-1.02) 04/15/22 12:54 Est GFR (CKD-EPI 2020) 83.78 (mL/min/1.73m2) 04/15/22 12:54 Calcium 9.2 mg/dL (8.5-10.1) 04/15/22 12:54 Glucose 91 mg/dL (74-106) 04/15/22 12:54 Liver Function Panel: No Data to Display Coagulation Panel: No Data to Display Cardiac Panel: No Data to Display Arterial Blood Gas: No Data to Display Venous Blood Gas: No Data to Display Pancreas Panel: No Data to Display Thyroid Panel: No Data to Display Infectious Disease: No Data to Display Blood Cultures: No Data to Display Toxicology Panel: No Data to Display Imaging and Studies Imaging and Studies Study information below may be from another EMR and interpreted by another provider. Please see original notes in EMR for more complete details. EKG Summary: PATIENT NAME: Lyla Payne #: [id number] ORDERING PROVIDER: Hunter Lema M.D. PRIMARY CARE PROVIDER:Bon Leung RN DATE/TIME OF SERVICE: 04/11/221402 : 1960ERFORMING LOCATION: [facility] APPROVED REPORT Exam: Resting ECG Reason for Exam: palpitations, [place]MAN Patient Location: O HR:94 bpm ECG Measurements Heart Rate 94 AXIS NM 187 P 60 QRSd 98 QRS 0 QT 371 T20 QTc 464 Conclusion Sinus rhythm...normal P axis, V-rate 50- 99 Ventricular premature complex...V complex w/ short R-R interval Otherwise normal Stress Test Summary: STRESS TEST PATIENT NAME: Lyla Payne #: [id number] ORDERING PROVIDER: Bon Leung NPACCOUNT #: [id number] PRIMARY CARE PROVIDER:Bon Leung RN DATE/TIME OF SERVICE: 03/28/22 ADMITTING PROVIDER: HUNTER LEMA MD : 1960 APPROVED REPORT Exam: Exercise Treadmill Patient Location: Out-Patient Room/Bed: Stress Nurse: Caroline Amin RN Ordering Provider:BON TALBERT, Contact Number: [phone] BMI: 29.48 Baseline Rhythm: Sinus w/ 1st degree AV block Indications: Abnormal findings of lung on DI, Occ. Palpitations, MOD Mitral Regurgitation Medical History Medical History: Anemia, COPD, Depression, Anxiety, GERD, TAYE Cardiac Medications: Omeprazole, Spiriva Inhaler Allergies: Ropinirole, perfumes, codeine, iron, pramipexole Cardiac Risk Factors: +family history, Former smoker, Obesity Previous Cardiac Procedures: None Pretest Chest Pain Characteristics: None Exercise History: Sedentary Physical Disabilities: None Lung Sounds: Clear Heart Sounds: +Murmur Stress Test Details Test: Exercise stress testing was performed using a Aroldo protocol. Rest Stress HR Resting HR Supine: 83 bpmMax Heart Rate (APMHR): 159 bpm Resting HR Standin bpmTarget HR (85% APMHR): 135 bpm Max HR Achieved: 152 bpm % of APMHR: 95 Recovery HR: 85 bpm HR response to stress: Normal HR response to stress BP Resting BP Supine: 146/82 mmHg Resting BP Standin/84 mmHg Max BP: 166/78 mmHg Recovery BP: 130/76 mmHg BP response to stress: Normal blood pressure response to stress. ECG Resting ECst degree AV block Ectopy: None Stress ECG: Sinus Tachycardia ST Change: No significant ST segment changes noted Arrhythmia: None Recovery ECst degree AV block Recovery ST Change: No significant ST segment changes noted Recovery Arrhythmia: PVC's Comment: flipped T waves 5 minutes into recovery in leads II, III, aVF, V4, V5, V6 Clinical Reason for Termination: Fatigue Stress Symptoms: General Fatigue Exercise duration: 4 min17 sec Highest Stage Reached: Stage 2: 2.5 mph at 12% grade. Exercise capacity: 6.17 METs Corrigan Treadmill Score: 3.2 Rate Pressure Product: [id number] Stress ECG Conclusion 1. Resting electrocardiogram showed first-degree AV block, left ventricular hypertrophy 2. Patient exercised on the Aroldo protocol and completed a workload of 6.17 METS stopping due to fatigue 3. Normal heart rate and blood pressure response to exercise. Patient achieved 95% of predicted heart rate for age 4. There was no electrocardiographic evidence of myocardial ischemia at peak exercise. ST segments in recovery became downsloping, equivocal for ischemia 5. There were no significant dysrhythmias Corrigan Treadmill Score is 3.2 which is Moderate risk. Echocardiogram Summary: Patient Name: Lyla Payne #: [id number]: DI Ordering Provider: Aminta Chao #: [id number]: STANLEY CLI Primary Care Provider: Bon Isbell NPDate of Exam: 07/04/21Sex: F Admission Date: 07/04/21 : 1960 Age: 60 APPROVED REPORT EXAM: Comprehensive 2D, Doppler, and color-flow Echocardiogram Patient Location: Out-Patient Flight Operations Coordinator: Zaynab Puckett RDCS (AE) Indications: Heart Murmur Other Information Study Quality: Adequate Conclusion Normal left ventricular wall thickness and chamber size. Estimated ejection fraction is 60%. Wall motion is normal Normal right ventricular size and systolic function Both atria are normal in size Trileaflet aortic valve without stenosis or regurgitation Moderate mitral annular calcification. Moderate mitral regurgitation Normal tricuspid valve with trace regurgitation. Right ventricular systolic pressure could not be estimated Mildly dilated ascending aorta measuring 3.62 cm Anesthesia Assessment and Plan Anesthesia History Personal History: No History of Anesthesia Complications Family History: No Family History of Anesthesia Complications Exercise Tolerance Exercise Tolerance: Metabolic Equivalents>4 Pertinent Negatives Pertinent Negatives: No Major Cardiovascular Symptoms or Complaints, No Major Pulmonary Symptoms or Complaints and No History of CVA/TIA Cardiac & Pulmonary Exam Cardiac Exam: Normal S1/S2 Heart Sounds Pulmonary Exam: Clear Bilateral Breath Sounds Implantable Cardiac Device Does patient have a Pacemaker or an ICD?: No Airway Exam Known Difficult Airway: No Mallampati Class: 3 Mouth Opening: Normal (> 3cm) Thyromental Distance: Greater than 3 cm Neck Range of Motion: Full ROM Neck Circumference: Normal Teeth Condition: Generalized Poor Dentition and Edentulous (Upper, lower missing several) ASA Classification ASA Score: ASA 3 Emergency Case?: No NPO Status NPO Status: NPO Clears >2 hours, Solids >8 hours Anesthesia Plan Resuscitation Status: Full Code Anesthesia Technique: Spinal Anesthesia Airway Planned: Natural Airway Pain Management: Surgeon and patient request nerve block Monitors Used: Standard Monitors
--- NOTE | 2022-04-23 07:23 | W.PM.DS.N ---
Date of service: 04/23/22 Time of Service: 13:55 DS: Diagnosis Discharge Diagnosis (1) Osteoarthritis of left knee: Status: Acute Discharge Plan Disposition Patient Disposition: HOME Condition: Good Discharge Details Reason For Visit: Left knee DJD Attending Provider: Thai Croft Primary Care Provider: Jennifer Isbell RN,Rip Home Meds and New Rx's Prescriptions: New acetaminophen 500 mg tablet 1,000 mg PO Q8H PRN Qty: 90 0RF Rx Instructions: Take two tablets up to every 8 hours as needed for pain aspirin 81 mg tablet,delayed release (DR/EC) 81 mg PO BID 30 Days Qty: 60 0RF celecoxib [Celebrex] 200 mg capsule 200 mg PO BID Qty: 30 0RF docusate sodium [Colace] 100 mg capsule 100 mg PO BID Qty: 30 0RF gabapentin 300 mg capsule 300 mg PO QHS Qty: 14 0RF Rx Instructions: Take one tablet at bedtime oxycodone 5 mg tablet 5 mg PO Q4H PRN (Reason: severe post-operative pain) Qty: 18 0RF Rx Instructions: Take one tablet up to every 4 hours as needed for severe pain Continued timolol 0.5 % drops 1 drp ophthalmic (eye) DAILY cetirizine 10 mg Tablet 10 mg PO DAILY PRN omeprazole 40 mg Capsule,Delayed Release(Dr/Ec) 40 mg PO HS bupropion HCl [Wellbutrin SR] 150 MG tablet extended release 12 hr 150 mg PO BID buspirone 15 MG tablet 15 mg PO BID Spiriva with HandiHaler 18 MCG capsule, w/inhalation device 18 mcg Inhalation DAILY rizatriptan 5 mg tablet 5 mg PO ONCE PRN Rx Instructions: may repeat once after at least 2 hours levothyroxine [Synthroid] 50 MCG tablet 50 mcg PO DAILY AM Discontinued ibuprofen [IBU] 800 mg Tablet 800 mg PO TID PRN acetaminophen [Tylenol Extra Strength] 500 MG tablet 1,000 mg PO PRN PRN Discharge Instructions Additional Instructions: Total Knee Discharge Instructions Activity: The most important activity is to walk and to work on gentle motion (both flexion and extension). You should try to take short walks a few times a day. It is important that when resting you work on keeping the knee straight. Avoid putting a pillow behind the knee as this will encourage flexion. Work on range of motion exercises as provided by Physical Therapy. - Start outpatient physical therapy within 2 weeks. - You should wear the ELIO hose on both legs for 2 weeks. You may remove these at night. You may also use any compression sock in place of the ELIO hose. - Utilize [employer] to review exercises, see videos on exercises and obtain basic information pertaining to your surgery and your recovery. Dressing: Remove the Edson wrap by 2 days after your surgery and put on the ELIO stocking given to you from the hospital. Keep the surgical dressing (underneath the EDSON wrap) in place for at least one week. After the first week it may be removed and replaced with light gauze and tape or nothing. The wound and dressing may get wet after 3 days but avoid soaking the dressing or otherwise it will need to be changed. Many people prefer covering the dressing with cling wrap (saran wrap) to minimize it from getting soaked. If it gets wet, just pat dry. If it starts to peel off then it will need to be changed. Medications: - You should take Tylenol and anti-inflammatory Celebrex as your primary pain control medications. If the Celebrex is too expensive or not covered, please call the office for another alternative (Advil/Ibuprofen or Naproxen/Aleve) - You have been prescribed a stronger pain medication Oxycodone for breakthrough pain, take as needed as prescribed. - You take a stomach acid reduction agent Omeprazole to help reduce stomach acid and reflux. - You have been prescribed Gabapentin to take at night for restlessness and nerve pain. - You will be taking Aspirin 81mg twice a day for DVT prevention unless instructed otherwise. - If you have constipation you should take Colace (which has been prescribed) or Miralax (which is available [id number]). It takes most people 3-4 days to have a bowel movement. Follow-up: 2 weeks If you have any acute concerns or questions, please do not hesitate to contact the office at [phone]. You may contact Dr. Croft with any questions after hours through the hospital at [phone] or on his cell phone at [phone]. Stand Alone Forms: Anesthesia Discharge Inst., Anes.Nerve Block Instructions, Rere Upton (DSU) Referrals: Thai Croft MD [ [facility] STAFF PHYSICIAN] - Equipment/Supplies: Walker Activity:: Elevate Remove Dressings/Wound Care:: Do Not Remove Shower/Bathe:: Cover Activity:: Activity as Tolerated Diet:: As Tolerated DS: Summary Time Spent with Patient providing and/or coordinating discharge services: Less than 30 minutes Status at Discharge Functional status at discharge: uses cane/walker Overall status at discharge: patient is progressing back to baseline Mental Status: mental status grossly normal Speech and Movement: speech and movement normal Mood: congruent mood Affect: normal affect Exam Psych Mental Status: mental status grossly normal Speech and Movement: speech and movement normal Mood: congruent mood Affect: normal affect [facility] All Active Problems UTI (urinary tract infection) (Acute) Hypothyroid (Acute) Hypotension (Acute) Normocytic anemia (Acute) Bacteremia due to Escherichia coli (Acute) Hypokalemia (Acute) Osteoarthritis of left knee (Acute) Depo Medrol 11/05/21 Palpitations (Acute) Tobacco dependence (Acute) Patellofemoral disorder (Acute) Mitral regurgitation (Chronic) Flat feet (Acute) H/O thyroidectomy (Chronic) Back pain (Acute) Hemorrhoids (Acute) Sleep apnea (Acute) NEWMAN (dyspnea on exertion) (Acute) Preoperative cardiovascular examination (Acute) Medical History Abnormal cervical Papanicolaou smear Acute reaction to situational stress Allergic rhinitis Anemia Cervicalgia COPD (chronic obstructive pulmonary disease) Dental caries Depression with anxiety GERD (gastroesophageal reflux disease) Goiter Knee pain, chronic Left hip pain Lumbar back pain TAYE (obstructive sleep apnea) Periodic limb movement Thrombocytosis Unspecified hemorrhoids with other complication Vertigo Surgical History 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 H/O partial thyroidectomy History of carpal tunnel release of both wrists Hx of cataract surgery Hx of section Hx of tonsillectomy S/P correction of deviated nasal septum Social History Smoking/Tobacco Use Status: Former Tobacco Use Smoking risk assessment performed?: Yes Alcohol Intake: never Drug use: Never Substance use type: does not use Household members: spouse Housing: house Number of Children: 1 current occupation: [employer] Current gender identity: female What is your relationship status?: Panel score (0-1 are the most socially isolated patients): 1 What type of physical activity do you participate in: none Do you feel safe at home: Yes Do you feel safe in your relationship?: Yes
[2022-04-23] MEDS: Acetaminophen 500 MG TAB 1000 MG PO (08:54)
[2022-04-23] MEDS: Gabapentin 300 MG CAP PO (08:55)
[2022-04-23] MEDS: Celecoxib 200 MG CAP 400 MG PO (08:55)
[2022-04-23] MEDS: Lactated Ringers 1,000 ML 80 ML IV (08:59)
--- NOTE | 2022-04-23 09:51 | W.ANESNERVE ---
Nerve Block Single Injection Procedure Date and Time Date Performed: 04/23/22 Procedure Start: 09:40 Location Where Procedure Performed Procedure Location: Day Surgery Unit Reason Performed: Postoperative Analgesia Requesting Provider: Thai Croft Timeout Performed Timeout Performed: Yes Monitoring Used ECG, Blood Pressure and SpO2 Sterility Sterility: Hand Hygiene, Surgical Cap, Surgical Mask, Sterile Gloves and Chlorhexidine Sedation Given During Procedure Sedation Given (Indicate Dose Given): Versed IV Dose:: 2 mg Patient Mental Status Patient Mental Status: Sedate with meaningful communication Nerve Block 1st Nerve Block: Laterality: Left Block Type: Adductor Canal Needle / Catheter Used: 100mm SonoPlex II Local Anesthetic Bolus (Indicate Dose Given): Lidocaine used for local infiltration of skin, Injected in 3-5ml increments after negative blood aspiration and Bupivacaine 0.25% Dose:: 15 ml Additives (Indicate Dose Given): Precedex Dose:: 15 ml Ultrasound: Sterile probe cover and gel used Ultrasound Image Saved?: Yes Nerve Stimulator: Not Used Paresthesia: None Post Procedure Pain score (0-10): 0 Procedure Tolerated: No Complications and Patient tolerated well Procedure Outcome: Successful Performed By: Noel Mccann
[2022-04-23] MEDS: ceFAZolin 2 GM/50 ML BAG IVPB (10:18)
--- NOTE | 2022-04-23 11:37 | W.PM.OP ---
Date of service: 04/23/22 Time of Service: 11:37 Operative Note Operative Note DATE OF PROCEDURE: 04/23/22 PRE-OP DIAGNOSIS: Left Knee Osteoarthritis POST-OP DIAGNOSIS: same PROCEDURE: Left Total Knee Replacement SURGEON: Thai Croft [employer] CONSULTANT: Chelle Simpson ANESTHESIA TYPE: Spinal Refer to Anesthesia Record ESTIMATED BLOOD LOSS: 150 PATHOLOGY: none sent TOURNIQUET TIME: 0 COMPLICATIONS: None Patient was transported to: PACU Patient's condition: stable Implants: 1. Depuy Attune Cementless Posterior Stabilized Femoral Component, Size 3 2. Depuy Attune Cementless Rotating Platform Tibial Component, Size 3 3. Depuy Attune 3x8mm PS/RP Poly 4. Depuy Attune Patellar Component, Size 29 Indications: I have seen Lyla in clinic for symptoms of knee arthritis, confirmed with radiographic findings. She has exhausted nonoperative methods and was having significant limitations in daily function and desired better function and less pain. I discussed the technical details of a knee replacement. I explained the risks of the procedure to include, but not limited to, bleeding, infection, pain, stiffness, fracture, damage to nerves and vessels, damage to muscles and tendons, loosening, need for repeat procedure, blood clot and cardiopulmonary demise. Despite these risks, Lyla elected to proceed. Findings: There was significant signs of arthritis throughout the knee. All 3 compartments were involved but there was notable patellar wear and a diminutive lateral femoral condyle. Procedure Description: Lyla was greeted in the preoperative holding area where the correct side was identified and marked. The consent was reviewed with the patient and signed. The history and physical was updated. All questions were answered. Preoperative medications were administered: Acetaminophen 1000mg, Celebrex 400mg, and Gabapentin 300mg. An adductor canal block was then administered by the anesthesia team in the PACU. Lyla was taken back to the operating room. A spinal anesthestic was then administered. The patient was placed into the supine position on the operating room table. A nonsterile tourniquet was placed high onto the leg but only used for cementing. Posts were placed for positioning during the procedure. All bony prominences were well padded. Prophylactic antibiotics in the form of Cefazolin were administered. 1g of Tranxemic Acid was given intravenously within 30 minutes of incision. The left leg was then prepped with Chloraprep and draped in a standard fashion with impervious stockinette. A second prep with Chloraprep was performed prior to application of Iodine impregnated skin protection. A timeout to confirm correct identity, side and site, procedure, allergies, anesthesia, and medical concerns was performed. With the knee in some flexion, a midline incision was made overlying the knee. Full thickness skin flaps were raised once the extensor mechanism was encountered. These were raised medially and laterally. Any bleeding was controlled with electrocautery. Once the extensor mechanism was fully exposed, a medial parapatellar arthrotomy was performed in a flexed position. All bleeding from the arthrotomy and the geniculate arteries was coagulated. A medial subperiosteal peel was performed with electrocautery to the midcoronal plane. The fat pad was removed while keeping the patellar tendon protected. The anterior distal femur synovium was removed for later visualization. The ACL and PCL were resected and the anterior horn of the lateral meniscus was transected. The knee was then flexed with the patella everted. Large osteophytes from the tibia were removed. Large osteophytes from the femur were removed. Using a step drill, and based on preoperative templating, the femoral canal was entered. This was done with a step drill without any difficulty. The intramedullary distal femoral cut guide was inserted, set to a 5 degree valgus cut and 9mm cut thickness off of the medial femur. The distal femoral cut guide was then held in position and pinned. With the soft tissues protected, the distal cut was performed. This was passed over a few times to ensure a planar cut. I then turned attention to the tibia. The extramedullary guide was placed onto the leg. The distal aspect was slid medial to adjust for position of center of ankle and stay in line with shaft of the tibia. Approximately 3-5 degrees of posterior slope was kept in the proximal cutting guide. The center of the guide was aligned with the PCL. The stylus was used to assess cut thickness. The medial side, least involved side, was set for a 6-7mm cut, corresponding to 4mm laterally. This was then held in position and pinned into place with 2 additional pins and a cross pin for stability. The medial and lateral collateral ligaments were protected and the cut was performed. With this completed, it was assessed and noted to be of appropriate dimensions. The guide was removed. A spacer block was inserted and the knee was brought into extension. The 6mm spacer block provided full extension, without hyperextension and with stability of both the medial and lateral collateral ligaments was assessed. The pins from the femur and the tibia were then removed. The distal femur was then sized. The anterior stylus was placed onto the lateral ridge of the anterior femur. This indicated a size 3 femur. The external rotation of the guide was adjusted to 0 degrees to match the epicondylar axis, perpendicular to Hidalgo?s line. The 4-in-1 cutting guide was the placed. The posterior medial femur cut was evaluated and appeared of good thickness. The spacer block was inserted underneath the cutting guide and stability was confirmed in 90 degrees of flexion. An aretha wing was used to confirm appropriate position of the anterior cut to avoid notching. This cutting guide was ensured to be flush on the cut surface and then pinned into place with headed pins. While protecting the soft tissues, quad tendon, and collateral ligaments, the anterior and posterior cuts were performed with a saw. The central two pins were removed and the posterior and anterior chamfers were cut next. The notch-cutting guide was placed. This was pinned to lateralize the femoral component as much as possible while keeping it flush on the cut surface. This was then pinned into position. A reciprocating saw was used to make the notch cut. A rasp smoothed the cut surfaces. The medial and lateral menisci were removed. A trial femoral component was then inserted, impacted down to the cut surfaces, and the lug holes were drilled. A provisional trial tibial component was placed and the knee was brought through range of motion. There was noted to be excellent extension and flexion. The polyethylene was trialed until there was good flexion and extension with excellent stability to the medial and lateral collaterals. The patella was tracking without thumbs. A size 8mm polyethylene component provided the best range of motion and stability with less than 2mm gapping with medial and lateral stress and full extension without significant hyperextension. The tibial cut surface was fully exposed. The tibia was then sized as a 3. The tibia had been previously marked during trialing to correspond to the center of the tibial component to help with rotation. The trial was aligned to this oliver, approximately rotated to the medial 1/3rd of the tibial tubercle. The trial was pinned into place. The tibia was prepared with a reamer and a keel punch and lug holes. The knee was then brought into extension and the patella was measured as 18mm. Using the patellar clamp and cut guide, this was resected to a flat surface with at least 12mm of thickness remaining. The size 29 patella fit the best. This was oriented and then clamped into position. The lugs were drilled. The trial components were removed. The final components were opened on the back table. The periosteal and capsular tissues, especially posteriorly, around the knee were then systematically injected with a periarticular cocktail consisting of 246mg of Ropivacaine, 0.5mg of Epinephrine, 0.08mg of Clonidine, and 30mg of Ketorolac, diluted to 100cc. On the back table, with the implants opened, the cement was mixed. One batch of high viscosity cement was prepared with vacuum assistance. After the cement was ready a small amount was placed on the cut surface of the patella and the patellar button was clamped into position and held. While the cement was hardening, the cementless knee components were placed. Starting with the tibial component, the tibia was subluxed anteriorly and the lug holes of the component were lined up. The tibia was then impacted with an impactor and mallet until the tibial component was in contact with the tibia. Then, the femoral component was inserted. The lug holes were aligned and the component was impacted into position. The final polyethylene was then inserted. The knee was irrigated with Irrisept chlorhexadine solution. This was allowed to sit in the knee for 3 minutes and then it was irrigated out with saline. After the cement had finally cured, approximately 15min, the clamp was removed from the patella and the knee was taken through range of motion. The patella was tracking with a no-thumbs technique. The capsule was then reapproximated with a No. 1 Vicryl at multiple locations. The capsule was finally closed with a No. 2 Stratafix, barbed suture. The second dosing of 1g TXA was started. Deep tissues were then reapproximated with 0 Vicryl and 2-0 Vicryl. The skin was closed with a running 3-0 Monocryl in a subcuticular fashion. This was reinforced with skin glue. A Mepilex silver dressing was applied along with a [id number] JESUS wrap. A CryoCuff was applied. She was transferred to the hospital bed without difficulty an suffering no apparent complication. Lyla has a good prognosis. Physical therapy will start today and without restrictions, weight-bearing as tolerated. Aspirin 81mg BID will be used for DVT prophylaxis.
[2022-04-23] MEDS: ePHEDrine 25 MG/5 ML Syringe IVP (12:46)
--- NOTE | 2022-04-23 14:07 | W.ANESPOSTOP ---
Postoperative Evaluation Date, Time and Location Date Performed: 04/23/22 Time Performed: 14:07 Patient Location: Day Surgery Unit Vital Signs Most Recent Imported Vital Signs: Most Recent Vital Signs Temp Pulse Resp BP Pulse Ox 36.5 C 66 18 100/72 96 04/23/22 13:33 04/23/22 13:33 04/23/22 13:33 04/23/22 13:33 04/23/22 13:33 Pain Score Most Recent Pain Score: Most Recent Pain Score Pain Level 2 04/23/22 13:33 Assessment Mental Status: Awake (Alert & Oriented to Patient Baseline) Airway and Respiratory Function: Patent airway with normal (patient baseline) respiratory exam Cardiovascular Function: Hemodynamically Stable Hydration Status: Adequately Hydrated Nausea & Vomiting: No Nausea or Vomiting Pain: Pain is tolerable per patient Peripheral Nerve Block: Patient did not receive a nerve block
--- NOTE | 2022-04-23 14:13 | PT.INIE ---
Date of service: 04/23/22 Time of Service: 14:13 PT Notes Visit Reasons: Left knee DJD Physical Therapy Day Surgery Initial Evaluation Date: 04/23/2022 Referring Doctor: MJ Ortega PT Orders: PT CONSULT: S/P Ortho surgery Precautions: WBAT on L LE with AD. Patient Profile/Admitting Diagnosis: Patient is a 61-year-old female with degenerative joint disease of the left knee and is status post left total knee arthroplasty on postoperative day 0. PMHX: Medical History? Abnormal cervical Papanicolaou smear Acute reaction to situational stress Allergic rhinitis Anemia Cervicalgia COPD (chronic obstructive pulmonary disease) Dental caries Depression with anxiety GERD (gastroesophageal reflux disease) Goiter Knee pain, chronic Left hip pain Lumbar back pain TAYE (obstructive sleep apnea) Periodic limb movement Thrombocytosis Unspecified hemorrhoids with other complication Vertigo Surgical History? H/O partial thyroidectomy History of carpal tunnel release of both wrists Hx of cataract surgery Hx of section Hx of tonsillectomy S/P correction of deviated nasal septum Social History/Home Situation: Lives with tramaine in a private home with 3 steps to enter with B rails. Equipment Owned/DME: None Subjective: Reported pain at 7/10 in the L knee and stiffness with movement and weight bearing initially but both symptoms went down to 2-3/10 later in the walk and intake of Oxycodone. Objective: General Observation: Supine on stretcher. JESUS wraps to L LE. Cryocuff to L knee. Cautious about moving L LE. Mental Status: Alert and oriented x 4 Pain: As above ROM: Right Lower Extremity: Hip flexion WFL. Hip abduction WFL. Knee flexion WFL. Ankle dorsiflexion WFL. Ankle plantarflexion WFL. Left Lower Extremity: Hip flexion WFL. Hip abduction WFL. Knee flexion 10 degrees to 90 degrees. Extension -10 degrees. Ankle dorsiflexion WFL. Ankle plantarflexion WFL Strength: Right Lower Extremity: Hip flexors 5/5. Hip abductors 5/5. Knee flexors 5/5. Knee extensors 5/5. Ankle dorsiflexors 5/5. Ankle plantarflexors 5/5. Left Lower Extremity:Hip flexors 4/5. Hip abductors 5/5. Knee flexors 3-/5. Knee extensors 3-/5. Ankle dorsiflexors 5/5. Ankle plantarflexors 5/5. Sensation: Intact as to pain and light pressure in B LE Bed Mobility/Transfers: Supine to sit stand by assist Sit to stand contact guard assist with report of 7/10 pain and increased stiffness in L knee, with FWW Stand to sit stand by assist with FWW Bed to chair stand by assist Gait: 20 feet using FWW with initial report of pain at 7/10 then down to 2-3/10 midway through the walk. He had to sit down on recliner inside room due to report of pain. Nurse Mary administered oxycodone and patient was able to continue to walk up to 75 feet +75 feet using same device. Step-to pattern with stand by assist. Needs use of FWW. No shortness of breath. Good quad activation. Balance: Static Sitting: Normal Dynamic Sitting: Normal Static Standing: Fair Dynamic Standing: Fair Special Tests: Mobility Limitations Standardized Measure [facility] 6 clicks Basic Mobility Inpatient Short Form: Raw Score: 22 CMS Score: 21% deficit Informed Consent/Education: Patient instructed in purpose of PT consult. Packet containing TKA exercise protocol has been given to patient. Education and training on initial set of exercises that can be done at home have been completed with patient. Assessment: Katerine requires the use of a front wheeled walker for all mobility ADL performance*to maximize independence and reduce fall risk. Patient presents with clinical signs and symptoms consistent with current/admitting diagnoses that have resulted to mobility limitations, gait instability, generalized weakness, and impairment of motor control as demonstrated by the following impairment level findings: 1. Decreased strength to left knee major muscle groups 2. Impaired standing balance 3. Limitation of joint range of motion in left knee Impairments are contributing to the following functional limitations: 1. Inability to safely ambulate without assistive device 2. Increase completion time for mobility ADL performance 3. Increased fall risk Patient is assessed as a 38493 moderate complexity based on the following: History: 61-year-old femalewith impairment level findings, functional limitations, and past medical history as indicated above Examination: Demonstrable impairment in strength, balance, and mobility level with underlying impairments and functional limitations as documented above Presentation: Evolving Decision Makin moderate complexity Goals: N/A. PT evaluation and 1-2 treatment sessions only for functional mobility training using recommended AD and for HEP instruction. Plan of Care/Treatment Plan: N/A. PT evaluation and 1-2 treatment session only for functional mobility training using recommended AD and for HEP instruction. DISCHARGE RECOMMENDATIONS: [] Home with no services [] [] Home with services [specify] [X] Home with outpatient PT. Home when medically cleared by orthopedic surgeon. Will benefit from outpatient PT services in order to optimize functional ability outcomes and facilitate return to independent community ambulation without an assistive device. [] SNF for continued rehabilitation [] [] [facility] [employer] [facility] [] [] SNF versus LTC based on ability to participate and progress [] TREATMENT CODE/TIME: 14137 x 20 minutes, 63829 x 34 minutes beginning at 14:13 PM. Thank you for the opportunity to participate in the care of this patient. Juliana Sandhu PT, DPT, CLT [facility] [place], [place]
[2022-04-23] MEDS: oxyCODONE 5 MG TAB PO (14:38)
== END 2022-04-23 15:15 | disposition home or self-care (01) ==
PROVIDERS: Visit Provider Student in an Organized Health Care Education/Training Program
PROC: (CPT 27447; principal; 2022-04-23 11:00)
DX: M17.12 Unilateral primary osteoarthritis, left knee (principal); E89.0 Postprocedural hypothyroidism; F17.210 Nicotine dependence, cigarettes, uncomplicated; G47.30 Sleep apnea, unspecified
CPT/HCPCS: 27447; 76942; 97162; 97530; J0690; J1100; J2405

== ENCOUNTER 2022-05-06 13:11 | Outpatient (CLI) | payer MEDICAID, SELFPAY ==
--- NOTE | 2022-05-06 11:15 | DI.RAD_ITS ---
Exam(s) XR KNEE LT 1V XR STANDING ALIGNMENT EXAM: XR STANDING ALIGNMENT CLINICAL HISTORY: 1ST POST OP L TKA. TECHNIQUE: 2D digital imaging was performed. Standing AP views were performed from the pelvis throu gh the ankles. Lateral view of the left knee. COMPARISON: CR XR KNEE LT 1V from 04/15/2022 CR XR STANDING ALIGNMENT from 04/15/2022 CR XR KNEE LT 1V from 05/06/2022 FINDINGS: BONES: No acute fracture is present. No bony destructive lesion is seen. Leg length discrepancy: The right femoral head projects 10 millimeter superior to the left. JOINTS: Knees: Left: Status post placement of a total knee prosthesis. Satisfactory alignment. No c ysts abnormal surrounding bony lucencies. Valgus angulation noted previously has been corrected. Ri ght: Spurring at the lateral femoral tibial joint. The ankle joints are unremarkable. The hip joints are unremarkable. SOFT TISSUE: Mild left lower extremity edema. IMPRESSION: Status post left knee prosthesis. 10 millimeter leg length discrepancy. DATA REPOSITORY: RADIATION DOSE DELIVERED:
== END 2022-05-06 13:12 | disposition home or self-care (01) ==
LOC: DIORS 13:11
PROVIDERS: Referring Provider Nurse Practitioner Family; Visit Provider Student in an Organized Health Care Education/Training Program
DX: Z96.652 Presence of left artificial knee joint (principal); Z47.1 Aftercare following joint replacement surgery; R60.0 Localized edema; M21.751 Unequal limb length (acquired), right femur
CPT/HCPCS: 73560; 77073

== ENCOUNTER → 2022-05-09 15:10 | Outpatient (CLI) | payer MEDICAID, SELFPAY ==
--- NOTE | 2022-05-09 14:00 | DI.US_ITS ---
Exam(s) US LOWER EXTREMITY VENOUS LT EXAM: US LOWER EXTREMITY VENOUS LT CLINICAL HISTORY: h/o lt total knee replacement, Z96.652, ?DVT TECHNIQUE: Left lower extremity venous ultrasound performed using grayscale, color-flow, and spectra l Doppler analysis. COMPARISON: US US LOWER EXTREMITY VENOUS LT from 08/22/2021 FINDINGS: The left common femoral, femoral and popliteal veins demonstrate normal compressibility, augmentation , and color Doppler. The posterior tibial veins are patent. The saphenofemoral junction is unremarka ble. There is no evidence of a cyst. The soft tissues are unremarkable. IMPRESSION: No evidence of a left lower extremity DVT. DATA REPOSITORY:
== END ==
PROVIDERS: Visit Provider Student in an Organized Health Care Education/Training Program
DX: Z96.652 Presence of left artificial knee joint (principal)
CPT/HCPCS: 93971

== ENCOUNTER → 2022-05-21 00:55 | Outpatient (CLI) | payer MEDICAID, SELFPAY ==
--- NOTE | 2022-05-21 14:09 | DI.CT_ITS ---
Exam(s) CT CHEST WO EXAM: CT CHEST WO CLINICAL HISTORY: 6 MO F/U, R91.8, BILAT LUNG FINDINGS,. TECHNIQUE: Multi planar reconstructions were performed. CONTRAST MATERIAL: None COMPARISON: CT CT CHEST WO from 10/30/2021 FINDINGS: CHEST: LUNGS: Previously described bilateral atelectasis and scarring remains unchanged from 10/30/2021. Th ere are no new focal pulmonary findings nor pleural effusions. No new ominous nodules in the either lung field. There are no pleural effusions. MEDIASTINUM: There is no obvious hilar nor mediastinal adenopathy. No axillary adenopathy.Left thyroi d lobe again noted and appears unremarkable. Isthmus and right thyroid lobe are again not of evident . No surgical clips in this region. CARDIAC: Heart size is normal. There is no pericardial effusion.Coronary artery calcifications noted . Diameter of the ascending thoracic aorta is 3.7 cm, VISUALIZED UPPER ABDOMEN:No obvious findings. OSSEOUS: No significant osseous lesions.. IMPRESSION: 1. Stable findings without significant change compared to prior CT scan of 10/30/2021 RADIATION DOSE DELIVERED: 69mGy.cm Total DLP DATA REPOSITORY: All CT scans at this facility are submitted to the National Radiology Data Registry (NRDR) Dose Index Registry (DIR) with the [employer] (ACR). RADIATION OPTIMIZATION: All CT scans at this facility use at least one of these dose optimization te chniques: automated exposure control; mA and/or kV adjustment per patient size (includes targeted exa ms where dose is matched to clinical indication); or iterative reconstruction.
== END ==
PROVIDERS: PCP Nurse Practitioner Family; Visit Provider Nurse Practitioner Family
DX: R91.8 Other nonspecific abnormal finding of lung field (principal)
CPT/HCPCS: 71250

== ENCOUNTER 2022-08-23 11:31 | Emergency (ER) | payer OTHER, SELFPAY ==
[2022-08-23 11:44] VITALS: BP 129/88; PULSE 77; RESP 18; TEMP 36.6; O2SAT 99
--- NOTE | 2022-08-23 12:45 | ED.GENADUL_ITS ---
Discharge Plan Disposition Patient Disposition: Home Discharge Details Clinical Impression: Conjunctivitis Primary Care Provider: CHAVA STRAUSS ED Provider: Mac Roy Home Meds and New Rx's Prescriptions: New ofloxacin 0.3 % drops 2 drp ophthalmic (eye) QID Qty: 5 0RF Continued timolol 0.5 % drops 1 drp ophthalmic (eye) DAILY cetirizine 10 mg Tablet 10 mg PO DAILY PRN omeprazole 40 mg Capsule,Delayed Release(Dr/Ec) 40 mg PO HS gabapentin 300 mg capsule 300 mg PO QHS Qty: 30 2RF bupropion HCl [Wellbutrin SR] 150 MG tablet extended release 12 hr 150 mg PO BID buspirone 15 MG tablet 15 mg PO BID Spiriva with HandiHaler 18 MCG capsule, w/inhalation device 18 mcg Inhalation DAILY rizatriptan 5 mg tablet 5 mg PO ONCE PRN Rx Instructions: may repeat once after at least 2 hours levothyroxine [Synthroid] 50 MCG tablet 50 mcg PO DAILY AM loteprednol etabonate [Lotemax] 0.5 % drops,suspension 0.5 drp 4-8XD Patient Comments: INSTILL 1 DROP INTO RIGHT EYE DAILY Discharge Instructions Instructions: Conjunctivitis (ED) Additional Instructions: Please monitor your symptoms very closely and return to the emergency department immediately for any new or significant worsening of symptoms. Please use [id number] Visine, take ibuprofen 600 mg every 6 hours as needed for discomfort, and use antibiotic eyedrops as prescribed. Please follow-up with [facility] on Friday for examination of your eye and to ensure that you are healing appropriately. Stand Alone Forms: Work Release Referrals: [facility] [Outside] - 3 days Discharge Data Discharge Date/Time-TO BE ENTERED AT DEPARTURE: 08/23/22 13:05 Medical Decision Making Patient presenting to the emergency department for evaluation of injury to left eye. Patient states that yesterday she excellently dropped a piece of chicken back into the box and some of the groin got into her left eye. She states that these were lemon pepper chicken. She did rinse with a little bit of water but did not irrigate for a long time. She states no change in vision but does have some discomfort. Patient worried about potential Salmonella or Listeria infection to the eye. She states though that redness happened fairly quickly. Physical exam shows significant injection and erythema to the lower aspect of the cornea and conjunctive a on the left eye. EOMs are intact without pain, pupillary responses appropriate, visual bailey are also normal. Patient does have significant decreased visual acuity specific in the left eye but she states that this is at baseline given that she is pending a cornea transplant. We will place patient on antibiotic eyedrops to cover for potential bacterial but I do feel that some of this is irritation due to the high salt content with also some possible acidic nature to the Brine. Given that this occurred yesterday and patient did slightly irrigated I do not feel that further irrigation is needed. Patient placed upon Cipro and encouraged to take NSAIDs for discomfort. After discussion of diagnosis and plan of care patient has no further needs, questions, or concerns and states clear understanding to return to the emergency department for any worsening symptoms. This documentation was generated using [employer] dictation system, please disregard any oddities of phrase or misspellings. HPI General Mode of arrival: ambulatory . Date/Time Provider Initiated Documentation: 08/23/22 11:52 . Limitations to Documentation: no limitations . Information obtained by: patient and RN notes reviewed . History of Present Illness 61 year old F presents to the emergency department with the chief complaint of Left eye injury, described as moderate, with intensity rated at 4. Quality is described as aching, and is localized to the eyes and left. Patient reports no radiation. Patient started experiencing this day(s) (1) and it has been constant. No relieving factors improve symptom(s), No exacerbating factors reported . Patient notes no other symptoms.. Patient did receive the following treatments prior to arrival, other (Did slightly rinse with water yesterday) Related Data Home Medications Medication Instructions Recorded Confirmed bupropion HCl 150 mg tablet,12 hr 150 mg PO BID 06/16/13 08/23/22 sustained-release (Wellbutrin SR) buspirone 15 mg tablet 15 mg PO BID 06/16/13 08/23/22 tiotropium bromide 18 mcg capsule 18 mcg inhalation DAILY 06/16/13 08/23/22 with inhalation device (Spiriva with HandiHaler) levothyroxine 50 mcg tablet 50 mcg PO DAILY AM 11/04/16 08/23/22 (Synthroid) cetirizine 10 mg tablet 10 mg PO DAILY PRN 02/09/19 08/23/22 omeprazole 40 mg capsule,delayed 40 mg PO HS 02/09/19 08/23/22 release rizatriptan 5 mg tablet 5 mg PO ONCE PRN 08/29/21 08/23/22 timolol 0.5 % eye drops 1 drp ophthalmic (eye) DAILY 04/11/22 08/23/22 gabapentin 300 mg capsule 300 mg PO QHS #30 caps 07/12/22 08/23/22 loteprednol etabonate 0.5 % eye 0.5 drp 4-8XD 08/23/22 08/23/22 drops,suspension (Lotemax) ofloxacin 0.3 % eye drops 2 drp ophthalmic (eye) QID #5 mL 08/23/22 Previous Rx's Medication Instructions Recorded gabapentin 300 mg capsule 300 mg PO QHS #30 caps 07/12/22 ofloxacin 0.3 % eye drops 2 drp ophthalmic (eye) QID #5 mL 08/23/22 Allergies Allergy/AdvReac Type Severity Reaction Status Date / Time perfume Allergy SOB Verified 08/23/22 11:57 codeine AdvReac Severe Nausea/Head Verified 08/23/22 11:57 ache iron AdvReac nausea/vomi Verified 08/23/22 11:57 ting pramipexole di-HCl AdvReac decreased Verified 08/23/22 11:57 [From Mirapex] sexual function ropinirole HCl [From Requip] AdvReac nausea/vomi Verified 08/23/22 11:57 ting/headac he General Stated Complaint: EyeProblem SHIRIN: 4 Review of Systems Narrative: 6 systems reviewed and unremarkable except what is marked below. Constitutional Constitutional: Denies chills, Denies fever(s) and Denies headache(s) Eyes Eyes: Reports as per HPI, Denies change in vision, Denies eye discharge, Reports irritation, Reports eye pain and Reports photophobia ENT Ears, Nose, Mouth, and Throat: Denies headache(s) Neurologic Neurologic: Denies headache(s) PFSH All Active Problems Conjunctivitis (Acute) History of total left knee replacement (Acute 04/23/22) UTI (urinary tract infection) (Acute) Hypothyroid (Acute) Hypotension (Acute) Normocytic anemia (Acute) Bacteremia due to Escherichia coli (Acute) Hypokalemia (Acute) Palpitations (Acute) Tobacco dependence (Acute) Patellofemoral disorder (Acute) Mitral regurgitation (Chronic) Flat feet (Acute) H/O thyroidectomy (Chronic) Back pain (Acute) Hemorrhoids (Acute) Sleep apnea (Acute) NEWMAN (dyspnea on exertion) (Acute) Preoperative cardiovascular examination (Acute) Medical History Abnormal cervical Papanicolaou smear Acute reaction to situational stress Allergic rhinitis Anemia Cervicalgia COPD (chronic obstructive pulmonary disease) Dental caries Depression with anxiety GERD (gastroesophageal reflux disease) Goiter Knee pain, chronic Left hip pain Lumbar back pain TAYE (obstructive sleep apnea) Periodic limb movement Thrombocytosis Unspecified hemorrhoids with other complication Vertigo Surgical History 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 H/O partial thyroidectomy History of carpal tunnel release of both wrists Hx of cataract surgery Hx of section Hx of tonsillectomy S/P correction of deviated nasal septum Social History Smoking/Tobacco Use Status: Former Tobacco Use Smoking risk assessment performed?: Yes Alcohol Intake: never Drug use: Never Substance use type: does not use Household members: spouse Housing: house Number of Children: 1 current occupation: [employer] Current gender identity: female What is your relationship status?: Panel score (0-1 are the most socially isolated patients): 1 What type of physical activity do you participate in: none Do you feel safe at home: Yes Do you feel safe in your relationship?: Yes Exam Const General: cooperative, no acute distress and not ill appearing Orientation: alert, awake and oriented x3 Eyes Visual Bailey: normal visual bailey by confrontation Alignment and Position: alignment normal Periorbital: periorbital findings normal Eyelids: eyelids normal Conjunctivae: conjunctival abnormality left conjunctival injection localized Sclera: scleral abnormality left scleral injection medial Pupils: PERRL EOM: EOM intact bilaterally Resp Effort & Inspection: normal respiratory effort, able to speak in complete sentences and no respiratory distress Skin General skin exam: no rashes or lesions noted Neuro General: patient alert, patient awake and patient oriented x3 Course Vital Signs Vital signs: Vital Signs Temperature 36.6 C 08/23/22 11:44 Pulse 77 08/23/22 11:44 Respiratory Rate 18 08/23/22 11:44 Blood Pressure 129/88 08/23/22 11:44 Pulse Oximetry 99 08/23/22 11:44 Temperature 36.6 C 08/23/22 11:44 Temperature Source Oral 08/23/22 11:44 Pulse 77 08/23/22 11:44 Respiratory Rate 18 08/23/22 11:44 Blood Pressure 129/88 08/23/22 11:44 Blood Pressure Position Sitting 08/23/22 11:44 Pulse Oximetry 99 08/23/22 11:44 Oxygen Delivery Method Room Air 08/23/22 11:44 Oxygen Flow Rate 0 08/23/22 11:44 Pain Level 0 08/23/22 11:44
== END 2022-08-23 13:05 | disposition home or self-care (01) ==
PROVIDERS: Emergency Provider Nurse Practitioner Family; PCP Nurse Practitioner Family
DX: H10.32 Unspecified acute conjunctivitis, left eye (principal)
CPT/HCPCS: 99283; 99284

== ENCOUNTER 2023-01-24 13:17 | Outpatient (REF) | payer MEDICAID, SELFPAY ==
[2023-01-24 18:30] LABS: ALT 12 U/L (14-59); AST 15 U/L (15-37); Albumin 3.9 g/dL (3.4-5.0); Alkaline Phosphatase 57 U/L (46-116); Anion Gap 11.1 mmol/L (3-11); BUN 18 mg/dL (7-18); Bilirubin, Total 0.3 mg/dL (0.2-1.0); CO2 23.9 mmol/L (21.0-32.0); CREATININE 0.8 mg/dL (0.55-1.02); Calcium 8.9 mg/dL (8.5-10.1); Chloride 107 mmol/L (98-107); Estimated GFR 83.26 (mL/min/1.73m2); Glucose 97 mg/dL (74-106); Potassium 4.1 mmol/L (3.5-5.1); Sodium 142 mmol/L (136-145); TSH 1.69 uIU/mL (0.36-3.74); Total Protein 7.1 g/dL (6.4-8.2)
== END 2023-01-24 13:18 | disposition home or self-care (01) ==
LOC: NCHCN 13:17
PROVIDERS: PCP Nurse Practitioner Family; Visit Provider Nurse Practitioner Family
DX: E03.9 Hypothyroidism, unspecified (principal); K21.9 Gastro-esophageal reflux disease without esophagitis; I34.0 Nonrheumatic mitral (valve) insufficiency; Z51.81 Encounter for therapeutic drug level monitoring
CPT/HCPCS: 80053; 84443

== ENCOUNTER 2023-02-07 14:01 | Outpatient (RCR) | payer MEDICAID, SELFPAY ==
--- NOTE | 2023-02-07 14:00 | HOLTER_ITS ---
APPROVED REPORT Conclusion This is a 48-hour Holter monitor ordered for palpitations Rhythm throughout was sinus with an average heart rate of 74. Minimum was 60, maximum 106 There were occasional ventricular ectopic beats. There were very rare atrial premature beats. There was one self-limited atrial run which lasted 6 b eats in duration There was no atrial fibrillation, no high-grade AV block, no pauses greater than 3 seconds No patient symptoms were reported
== END 2023-03-01 23:59 | disposition home or self-care (01) ==
LOC: CARDOPNVT 14:01
PROVIDERS: PCP Nurse Practitioner Family; Visit Provider Nurse Practitioner Family
DX: R00.2 Palpitations (principal)
CPT/HCPCS: 93225; 93226

== ENCOUNTER 2023-04-28 14:57 | Outpatient (CLI) | payer MEDICAID, SELFPAY ==
--- NOTE | 2023-04-28 10:15 | DI.RAD_ITS ---
Exam(s) XR KNEE LT 2V AP,LAT EXAM: XR KNEE LT 2V AP,LAT CLINICAL HISTORY: ANNUAL F/U L TKA. TECHNIQUE: 2D digital imaging was performed. Two images were obtained. AP and lateral views were ob tained. COMPARISON: CR XR KNEE LT 3V AP,LAT,BLAIRE from 08/22/2021 CR XR STANDING ALIGNMENT from 05/06/2022 CR XR KNEE LT 1V from 05/06/2022 FINDINGS: BONES: There are stable post operative changes of a left total knee replacement present. No fracture or dislocation. JOINTS: The orthopedic hardware is in good position. No evidence of hardware loosening. SOFT TISSUE: Vascular calcifications are present. IMPRESSION: Stable postoperative changes. DATA REPOSITORY: RADIATION DOSE DELIVERED:
== END 2023-04-28 14:58 | disposition home or self-care (01) ==
LOC: DIORS 15:06
PROVIDERS: PCP Nurse Practitioner Family; Visit Provider Student in an Organized Health Care Education/Training Program
DX: Z96.652 Presence of left artificial knee joint (principal); Z47.1 Aftercare following joint replacement surgery
CPT/HCPCS: 73560

== ENCOUNTER → 2023-07-07 03:01 | Outpatient (CLI) | payer MEDICAID, SELFPAY ==
--- NOTE | 2023-07-07 08:30 | DI.US_ITS ---
APPROVED REPORT EXAM: Comprehensive 2D, Doppler, and color-flow Echocardiogram Patient Location: Out-Patient Machinery Dismantler: Roberth Baron RDCS (AE) Indications: cardiac murmur Conclusion 1. LA moderately dilated, LV mildly dilated,RA/RV normal. 2. Normal LV function,EF 60%.Normal RV function. 3. Moderate posterior mitral annular calcification,moderate MR. Trace TR, no phtn 4. No intracardiac shunt 5. No pericardial effusion. Wall motion Left Ventricle Left ventricle is mildly dilated. The left ventricular systolic function is normal. The left ventricu lar ejection fraction is within the normal range. There is normal left ventricular wall thickness. Th ere is normal LV segmental wall motion. There is no ventricular septal defect visualized. LVEF is 60% . Right Ventricle The right ventricle is normal size. Right ventricular systolic function is grossly normal. Atria Left atrium is moderately dilated. The right atrium size is normal. The interatrial septum is intact with no evidence for an atrial septal defect. Aortic Valve The aortic valve is normal in structure. Aortic valve is trileaflet. There is no aortic valvular sten osis. No aortic regurgitation is present. Mitral Valve Moderate mitral annular calcification. No evidence of mitral valve stenosis. Mild to moderate mitral regurgitation. Tricuspid Valve The tricuspid valve is normal in structure. There is no tricuspid valve stenosis. Trace tricuspid reg urgitation. The RVSP is 8.7 mmHg. Pulmonic Valve The pulmonary valve is normal in structure. There is no pulmonic valvular stenosis. Mild pulmonic reg urgitation. Great Vessels The aortic root is normal in size. The ascending aorta is mildly dilated. Aortic arch is normal in ca liber. IVC is normal in size and collapses >50% with inspiration. Pericardium There is no pericardial effusion. 2D Dimensions IVSD d PLAX 0.76 cm F: 0.6-1.0 Ao Root d 2.87 cm F: 2.7 - 3.3 LVPW d PLAX 0.79 cm F: 0.6 - 1.0 Ao Asc Diam d 3.33 cm F: 2.3 - 3.1 LVID d PLAX 5.58 cm F: 3.8 - 5.2 LVDs 3.75 cm F: 2.2 - 3.5 LV EF Teichholz 60.7 % FS 32.88 % LV EDV (Teich) 152.5 mL LV ESV (Teich) 59.9 mL Stroke Vol Index (Teich) 56.83 M-Mode TAPSE 1.83 cm (M/F) >1.7 Auto EF LV EDV A4C 103.3 mL LV EDV A2C 104.3 mL LV EDV BP 105.9 mL LV ESV A4C 39.8 mL LV ESV A2C 41.9 mL LV ESV BP 42.0 mL LVEF(%) A4C 61.5 % LVEF(%) A2C 59.9 % LVEF(%) BP 60.3 % LV SV A4C 63.5 ml LV SV A2C 62.4 ml LV SV BP 63.9 ml LV CO A4C 4.2 L/min LV CO A2C 4.3 L/min LV CO BP 4.3 L/min HR A4C 66.42 BPM HR A2C 69.10 BPM LV EDV Index (BP) LA Volume LA Length A4C 4.6 cm LA Length A2C 5.0 cm LA Area A4C s 19.85 cm2 LA Area A2C s 16.06 cm2 LA Vol A4C A-L 72.03 mL LA Vol A2C A-L 43.65 mL LA Vol Biplane A-L 58.3 mL LA Vol/BSA A4C A-L LA Vol/BSA A2C A-L LA Vol/BSA BP A-L 35.7 mL/m2 LA Vol A4C MOD 68.9 mL LA Vol A2C MOD 41.6 mL LA Vol BP MOD 55.6 mL RA Volume RA Area A4C 9.5 cm2 RA ESV A4C (A-L) 17.5mL RA Vol/BSA A4C A-L RA Length A4C 4.4 cm RA ESV A4C (MOD) 16.5mL LV Diastology MV E' medial 0.077 (>0.07 m/s) MV E Vmax 1.06 (0.4-1.3 m/s) MV E/E' MED 13.77 (<14) MV A Vmax 0.70 (0.4-1.3 m/s) MV E' lateral 0.107 (>0.1 m/s) E/A Ratio 1.5 MV E/E' LAT 9.97 (<14) MV E' Average 0.092 m/s MV E/E'(average) 11.56 Aortic Valve AoV Vmax 1.25 m/s LVOT Vmax 0.91 m/s AoV Peak Grad 6.2 mmHg LVOT Peak Grad 3.3 mmHg AoV Area (Vmax) 1.85 cm2 LVOT VTI 0.195 m AoV VTI 0.218 m LVOT Mean Grad 1.9 mmHg AoV Mean Gasper. 0.82 m/s LVOT SV 49.35 mL AoV Mean Grad 3.1 mmHg LVOT Diam s 1.75 cm AoV Area (VTI) 2.27 cm2 Velocity Ratio 0.73 Mitral Valve MV DT 163 (160-240 msec) MV Vmax TIPS 1.32 m/s MV Mean Grad 2.6 (<2mmHg) MV VTI 0.352 m Pulmonary Valve PV Vmax 0.93 (0.5-1.5 m/s) RVOT Vmax 0.41 m/s PV Peak Grad 3.6 mmHg RVOT Peak Gr. 0.7 mmHg PV Mean Gasper 0.63 m/s RVOT VTI 0.066 m PV Mean Grad 1.9 mmHg RVOT Mean Gr. 0.4 mmHg Tricuspid Valve RA Pressure 3.00 mmHg TR Vmax 1.20 m/s TR Peak Grad 5.7 mmHg RVSP (TR) 8.7 mmHg
== END ==
PROVIDERS: PCP Nurse Practitioner Family; Visit Provider Nurse Practitioner Family
DX: R01.1 Cardiac murmur, unspecified (principal)
CPT/HCPCS: 93306

== ENCOUNTER 2023-08-06 10:25 | Emergency (ER) | payer MEDICAID, SELFPAY ==
[2023-08-06 10:28] VITALS: BP 122/75; PULSE 96; RESP 22; TEMP 37.5; O2SAT 98
--- NOTE | 2023-08-06 10:45 | ED.GENADUL_ITS ---
Discharge Plan Disposition Patient Disposition: Home Condition: Stable Discharge Details Clinical Impression: Acute exacerbation of chronic obstructive pulmonary disease Primary Care Provider: Amanda Lr ED Provider: Ke Cadena Home Meds and New Rx's Prescriptions: New prednisone 20 mg tablet 60 mg PO DAILY 4 Days Qty: 12 0RF doxycycline hyclate 100 mg tablet 100 mg PO BID Qty: 14 0RF Continued timolol 0.5 % drops 1 drp ophthalmic (eye) DAILY omeprazole 40 mg Capsule,Delayed Release(Dr/Ec) 40 mg PO HS fluticasone propion-salmeterol [Advair HFA] 115-21 mcg/actuation HFA aerosol inhaler 2 puff inhalation BID bupropion HCl [Wellbutrin SR] 150 MG tablet extended release 12 hr 150 mg PO BID buspirone 15 MG tablet 15 mg PO BID tiotropium bromide [Spiriva with HandiHaler] 18 MCG capsule, w/inhalation device 18 mcg Inhalation DAILY rizatriptan 5 mg tablet 5 mg PO ONCE PRN Rx Instructions: may repeat once after at least 2 hours levothyroxine [Synthroid] 50 MCG tablet 50 mcg PO DAILY AM loteprednol etabonate [Lotemax] 0.5 % drops,suspension 0.5 drp 4-8XD Patient Comments: INSTILL 1 DROP INTO RIGHT EYE DAILY Discharge Instructions Additional Instructions: You are being treated for a lung infection along with a COPD exacerbation Not better within a week follow-up with your primary care provider Feel more ill, have worsening shortness of breath, or chest pain return to the emergency department HPI General Mode of arrival: ambulatory . Date/Time Provider Initiated Documentation: 08/06/23 10:30 . Limitations to Documentation: no limitations . Information obtained by: patient . History of Present Illness 62 year old F presents to the emergency department with the chief complaint of cough, described as moderate, Patient started experiencing this day(s) (2) and it has been intermittent. No relieving factors improve symptom(s), No exace rbating factors reported . Patient notes shortness of breath; denies chest pain and fever/chills. Related Data Home Medications Medication Instructions Recorded Confirmed bupropion HCl 150 mg tablet,12 hr 150 mg PO BID 06/16/13 04/28/23 sustained-release (Wellbutrin SR) buspirone 15 mg tablet 15 mg PO BID 06/16/13 04/28/23 tiotropium bromide 18 mcg capsule 18 mcg inhalation DAILY 06/16/13 04/28/23 with inhalation device (Spiriva with HandiHaler) levothyroxine 50 mcg tablet 50 mcg PO DAILY AM 11/04/16 04/28/23 (Synthroid) omeprazole 40 mg capsule,delayed 40 mg PO HS 02/09/19 04/28/23 release rizatriptan 5 mg tablet 5 mg PO ONCE PRN 08/29/21 04/28/23 timolol 0.5 % eye drops 1 drp ophthalmic (eye) DAILY 04/11/22 04/28/23 loteprednol etabonate 0.5 % eye 0.5 drp 4-8XD 08/23/22 04/28/23 drops,suspension (Lotemax) fluticasone propionate 115 2 puff inhalation BID 04/28/23 04/28/23 mcg-salmeterol 21 mcg/actuation HFA inhaler (Advair HFA) doxycycline hyclate 100 mg tablet 100 mg PO BID #14 tabs 08/06/23 prednisone 20 mg tablet 60 mg (3 x 20 mg) PO DAILY 4 days 08/06/23 #12 tabs Previous Rx's Medication Instructions Recorded doxycycline hyclate 100 mg tablet 100 mg PO BID #14 tabs 08/06/23 prednisone 20 mg tablet 60 mg (3 x 20 mg) PO DAILY 4 days 08/06/23 #12 tabs Allergies Allergy/AdvReac Type Severity Reaction Status Date / Time perfume Allergy SOB Verified 08/06/23 10:35 codeine AdvReac Severe Nausea/Head Verified 08/06/23 10:35 ache iron AdvReac nausea/vomi Verified 08/06/23 10:35 ting pramipexole di-HCl AdvReac decreased Verified 08/06/23 10:35 [From Mirapex] sexual function ropinirole HCl [From Requip] AdvReac nausea/vomi Verified 08/06/23 10:35 ting/headac he General Stated Complaint: SOB SHIRIN: 3 Review of Systems All systems reviewed & are unremarkable except as noted in HPI and below Constitutional Constitutional: Denies chills, Denies fever(s) and Denies weakness Cardiovascular Cardiovascular: Denies chest pain and Reports dyspnea Respiratory Respiratory: Reports cough and Reports dyspnea Gastrointestinal Gastrointestinal: Denies abdominal pain, Denies nausea and Denies vomiting Integumentary/Breasts Skin/Breast: Denies rash Neurologic Neurologic: Denies weakness Exam Const General: no acute distress Orientation: alert HENIN Head: normal to inspection Ears: external ears normal General nose exam: external nose normal Mouth: moist mucous membranes Eyes General: appearance normal, both eyes and all related structures Neck Neck: normal visual inspection Resp Effort & Inspection: normal respiratory effort and able to speak in complete sentences Auscultation: wheezes Cardio Rate: regular rate Heart Sounds: no murmurs Skin General skin exam: no rashes or lesions noted Neuro General: patient alert and patient oriented x3 Extrem General: normal to inspection Psych Mental Status: mental status grossly normal Course Vital Signs Vital signs: Vital Signs Temperature 37.5 C 08/06/23 10:28 Pulse 96 H 08/06/23 10:28 Respiratory Rate 22 08/06/23 10:28 Blood Pressure 122/75 08/06/23 10:28 Pulse Oximetry 98 08/06/23 10:28 Temperature 37.5 C 08/06/23 10:28 Temperature Source Skin 08/06/23 10:28 Pulse 96 H 08/06/23 10:28 Respiratory Rate 22 08/06/23 10:28 Blood Pressure 122/75 08/06/23 10:28 Pulse Oximetry 98 08/06/23 10:28 Oxygen Delivery Method Room Air 08/06/23 10:28 Oxygen Flow Rate 0 08/06/23 10:28 Pain Level 8 08/06/23 10:28 Medical Decision Making 62-year-old female with a history of COPD, comes in with shortness of breath and cough for 2 days. She states she has been using her home inhalers without significant relief. Denies any chest pain or pressure, no fevers or chills, states the cough is productive of green sputum. She arrives conscious alert and oriented x 4 is able to speak in full sentences and does not appear well on exam. On lung exam does have wheezing bilaterally in all lung fritz, no JVD, no leg swelling, no calf tenderness, no hypoxia. Given her history suspect COPD exacerbation will treat with a DuoNeb and prednisone, given lack of chest pain and her exam findings doubt entities such as ACS and PE and do not feel workup for either of these is indicated at the present time. Will obtain an x-ray to evaluate for pneumonia and obtain COVID test and reassess. Patient stable states she feels better after prednisone and DuoNeb, Fluvid negative, x-ray questioning a small left lower lobe infiltrate, was planning on starting her on antibiotics given increased cough with the setting of COPD exacerbation. She is still speaking in full sentences, only has mild apical wheezing now bilaterally otherwise clear lung sounds. Room air saturation is 98%. Will start on prednisone and doxycycline, advised to follow-up with her primary care provider if not better within a week and return precautions given Differential Diagnosis Differential Diagnosis: COPD, COVID, pneumonia, bronchitis Medical Records Medical records reviewed: Yes I reviewed the patient's medical records. Imaging Data Radiologic Study: Attestation: I personally reviewed and interpreted this imaging study as jovana oh: Imaging: X-Ray Radiologist's impression: Question left lower lobe infiltrate Quality:SDOH Health Related Social Needs: No Data to Display PFSH All Active Problems (Updated 08/06/23 @ 13:14 by Ke Cadena MD) Acute exacerbation of chronic obstructive pulmonary disease (Acute) History of total left knee replacement (Acute 04/23/22) UTI (urinary tract infection) (Acute) Hypothyroid (Acute) Hypotension (Acute) Normocytic anemia (Acute) Bacteremia due to Escherichia coli (Acute) Hypokalemia (Acute) Palpitations (Acute) Tobacco dependence (Acute) Patellofemoral disorder (Acute) Mitral regurgitation (Chronic) Flat feet (Acute) H/O thyroidectomy (Chronic) Back pain (Acute) Hemorrhoids (Acute) Sleep apnea (Acute) NEWMAN (dyspnea on exertion) (Acute) Preoperative cardiovascular examination (Acute) Medical History Abnormal cervical Papanicolaou smear Acute reaction to situational stress Allergic rhinitis Anemia Cervicalgia COPD (chronic obstructive pulmonary disease) Dental caries Depression with anxiety GERD (gastroesophageal reflux disease) Goiter Knee pain, chronic Left hip pain Lumbar back pain TAYE (obstructive sleep apnea) Periodic limb movement Thrombocytosis Unspecified hemorrhoids with other complication Vertigo Surgical History 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 H/O partial thyroidectomy History of carpal tunnel release of both wrists Hx of cataract surgery Hx of section Hx of tonsillectomy S/P correction of deviated nasal septum Social History Smoking/Tobacco Use Status: Former Tobacco Use Smoking risk assessment performed?: Yes Alcohol Intake: never Drug use: Never Substance use type: does not use Household members: spouse Housing: house Number of Children: 1 current occupation: [employer] Current gender identity: female What is your relationship status?: Panel score (0-1 are the most socially isolated patients): 1 What type of physical activity do you participate in: none Do you feel safe at home: Yes Do you feel safe in your relationship?: Yes
[2023-08-06 11:12] VITALS: PULSE 92; RESP 22; RESP 3; RESP 5; O2SAT 98
[2023-08-06] MEDS: Albuterol/Ipratropium 3 ML UPD VIAL UPD (11:12)
[2023-08-06] MEDS: predniSONE 20 MG TAB 60 MG PO (11:12)
[2023-08-06 12:08] LABS: COVID-19 PCR Negative (Negative); Influenza A PCR Negative (Negative); Influenza B PCR Negative (Negative); RSV PCR Negative (Negative); Source Nasopharynx
--- NOTE | 2023-08-06 13:00 | DI.RAD_ITS ---
Exam(s) XR CHEST 2V PA LATERAL EXAM: XR CHEST 2V PA LATERAL CLINICAL HISTORY: cough TECHNIQUE: 2D digital imaging was performed. Two views. COMPARISON: CR CHEST 2 VIEWS PA,LAT from 11/03/[address] CHEST WO from 05/21/2022 FINDINGS: HEART: Normal size. Aorta: Mildly tortuous. PULMONARY VASCULATURE: Normal. LUNGS: Question of increased densities seen posterior to the heart could represent pneumonia versus o verlapping vessels. Mild right basilar scarring. PLEURAL SPACE: No pleural effusion or pneumothorax. BONE:Unremarkable for age. Soft tissues: Unremarkable. IMPRESSION: Question of left lower lobe infiltrate versus overlying vessels. DATA REPOSITORY: RADIATION DOSE DELIVERED:
[2023-08-06] MEDS: Doxycycline Hyclate 100 MG CAP PO (13:19)
[2023-08-06 13:26] VITALS: BP 132/84; PULSE 81; RESP 18; TEMP 36.8; O2SAT 96
== END 2023-08-06 16:26 | disposition home or self-care (01) ==
PROVIDERS: Emergency Provider Emergency Medicine; PCP Nurse Practitioner Family
DX: J44.1 Chronic obstructive pulmonary disease with (acute) exacerbation (principal); Z11.52 Encounter for screening for COVID-19; Z87.891 Personal history of nicotine dependence
CPT/HCPCS: 87635; 87637; 94640; 99284; 71046; J7512; J7620

== ENCOUNTER 2024-03-18 15:39 | Outpatient (REF) | payer MEDICAID, SELFPAY ==
[2024-03-18 17:10] LABS: Hemoglobin A1C 5.5 % (<5.7)
[2024-03-18 17:26] LABS: ALT 15 U/L (14-59); AST 13 U/L (15-37); Albumin 4.1 g/dL (3.4-5.0); Alkaline Phosphatase 67 U/L (46-116); Anion Gap 13.4 mmol/L (3-11); BUN 21 mg/dL (7-18); Bilirubin, Total 0.36 mg/dL (0.2-1.0); CO2 23.6 mmol/L (21.0-32.0); CREATININE 0.7 mg/dL (0.55-1.02); Calcium 9.5 mg/dL (8.5-10.1); Calculated LDL 106 mg/dL (<100); Chloride 109 mmol/L (98-107); Cholesterol 195 mg/dL (<200); Estimated GFR 97.12 (mL/min/1.73m2); Glucose 93 mg/dL (74-106); HDL Cholesterol 66 mg/dL (40-60); Potassium 4.6 mmol/L (3.5-5.1); Sodium 146 mmol/L (136-145); TSH (W/Ref FT4) 2.32 uIU/mL (0.36-3.74); Total Protein 7.4 g/dL (6.4-8.2); Triglyceride 116 mg/dL (<150)
== END 2024-03-18 15:40 | disposition home or self-care (01) ==
LOC: NCHCN 15:39
PROVIDERS: Visit Provider Nurse Practitioner Family
DX: E03.9 Hypothyroidism, unspecified (principal); K21.9 Gastro-esophageal reflux disease without esophagitis; Z13.220 Encounter for screening for lipoid disorders; Z13.1 Encounter for screening for diabetes mellitus
CPT/HCPCS: 80053; 80061; 83036; 84443

== ENCOUNTER 2024-03-25 01:41 | Outpatient (CLI) | payer MEDICAID, SELFPAY ==
--- NOTE | 2024-03-25 | DI.MAMMO_ITS ---
Exam(s) MAMMO SCREENING EXAM: MAMMO SCREENING CLINICAL HISTORY: Screening, Z12.31. TECHNIQUE: Bilateral full field digital CC and MLO mammographic images were obtained with 3D tomosyn thesis and utilizing computer aided detection (CAD). COMPARISON: Prior mammograms were reviewed. FINDINGS: There has been no significant change in the appearance and distribution of the fibroglandular tissue. There are no new spiculated masses nor malignant appearing microcalcification groups. There is no significant architectural distortion nor skin thickening-retraction. IMPRESSION: No radiographic evidence of malignancy. BI-RADS Category 1 - Negative Breast Density - Category B - Scattered areas of fibroglandular density Breast density Category C or D implies that the patient has dense breast tissue. Dense breast tissue can make it harder to find cancer on a mammogram. Dense breast tissue is also associated with an incr eased risk of breast cancer. This information about the result of the mammogram report was provided to the patient to raise their awareness. Use this report when you speak with the patient about their risks for breast cancer, which includes their family history. At that time, you may recommend additional screening tests (Ultrasoun d or MRI) as these tests may add significant information. A negative radiographic report should not delay biopsy if a dominant or clinically suspicious mass is present. Up to ten percent of cancers are not identified on mammography. A negative report may reinforce clinical impression. Adenosis and dense breasts may obscure an underlying neoplasm. False positive reports average 6 to 10%. Patient will receive a letter notifying them of these results.
== END 2024-03-25 02:01 ==
PROVIDERS: PCP Nurse Practitioner Family; Visit Provider Nurse Practitioner Family
DX: Z12.31 Encounter for screening mammogram for malignant neoplasm of breast (principal)
CPT/HCPCS: 77063; 77067

== ENCOUNTER 2024-04-02 02:57 | Outpatient (CLI) | payer MEDICAID, SELFPAY ==
[2024-04-02] MEDS: Levalbuterol HFA 15 GM INH 4 PUFF IH (13:54)
[2024-04-02] MEDS: Inhaler, Assist Device 1 EACH MC (13:54)
--- NOTE | 2024-04-06 14:32 | W.PFT ---
Date of service: 04/02/24 Time of Service: 13:02 Pulmonary Function Test Result Indications: COPD Interpretation Spirometry: There is moderate airflow limitation. No bronchodilator response. Lung Volumes: There is air trapping. Diffusion Capacity: Decreased diffusion Airway Pressure: Normal airways resistance Impression Moderate airflow obstruction, air trapping and a decreased diffusion. This could be consistent with COPD with emphysema. Clinical Correlation therefore is recommended.
== END 2024-04-02 02:58 | disposition home or self-care (01) ==
LOC: RT 02:57
PROVIDERS: PCP Nurse Practitioner Family; Visit Provider Nurse Practitioner Family
DX: J44.9 Chronic obstructive pulmonary disease, unspecified (principal)
CPT/HCPCS: 94060; 94726; 94729

== ENCOUNTER 2024-04-06 13:58 | Outpatient (CLI) | payer MEDICAID, SELFPAY ==
--- NOTE | 2024-04-06 12:17 | DI.RAD_ITS ---
Exam(s) XR FOOT LT COMPLETE EXAM: XR FOOT LT COMPLETE CLINICAL HISTORY: PAIN LEFT FOOT M79.672. TECHNIQUE: 2D digital imaging was performed of the left foot. Three images were obtained. AP, obli que and lateral views were obtained. COMPARISON: No exams were available for comparison FINDINGS: BONES: No acute fracture is present. No bony destructive lesion is seen. Second and 3rd hammertoes ar e present. JOINTS: No dislocation present. There is a marked hallux valgus deformity. There are prominent degen erative changes seen at the 2nd and 3rd tarsometatarsal joints. There also degenerative changes seen at the articulation of the navicular with the lateral cuneiform. SOFT TISSUE: Normal. IMPRESSION: 1. No acute abnormality. 2. Chronic changes of the foot including degenerative changes, hammertoe deformities and hallux valgu s deformity. DATA REPOSITORY: RADIATION DOSE DELIVERED:
== END 2024-04-06 14:18 ==
LOC: DI 13:58
PROVIDERS: PCP Nurse Practitioner Family; Visit Provider Nurse Practitioner Family
DX: M19.072 Primary osteoarthritis, left ankle and foot (principal)
CPT/HCPCS: 73630

== ENCOUNTER 2024-04-26 14:15 | Outpatient (CLI) | payer MEDICAID, SELFPAY ==
--- NOTE | 2024-04-26 10:15 | DI.RAD_ITS ---
Exam(s) XR KNEE LT 2V AP,LAT EXAM: XR KNEE LT 2V AP,LAT CLINICAL HISTORY: ANNUAL F/U L TKA. TECHNIQUE: 2D digital imaging was performed. Two images were obtained. AP and lateral views were ob tained. COMPARISON: CR XR KNEE LT 2V AP,LAT from 04/28/2023 FINDINGS: BONES: There are stable post operative changes of a left total knee arthroplasty present. No fractur e or dislocation. JOINTS: The orthopedic hardware is in good position. No evidence of hardware loosening. SOFT TISSUE: Atherosclerotic calcification is present. IMPRESSION: Stable left total knee arthroplasty. DATA REPOSITORY: RADIATION DOSE DELIVERED:
== END 2024-04-26 14:16 | disposition home or self-care (01) ==
LOC: DIORS 14:26
PROVIDERS: PCP Nurse Practitioner Family; Visit Provider Student in an Organized Health Care Education/Training Program
DX: Z96.652 Presence of left artificial knee joint (principal); Z47.1 Aftercare following joint replacement surgery
CPT/HCPCS: 73560

== ENCOUNTER 2024-06-04 10:15 | Day surgery (SDC) | payer MEDICAID, SELFPAY ==
--- NOTE | 2024-06-03 22:03 | COLE_ITS ---
Date of service: 06/04/24 Time of Service: 12:37 Colonoscopy Report Date of procedure: 06/04/24 Pre-op diagnosis general: CRC screening Post-op diagnosis procedure note: other (I. hemorrhoids/divertic) Surgeon: Chelle Pittman Anesthesia Type: General:No Airway Estimated blood loss (mL): 0 Pathology: none sent Complications: None Disposition: same day Prep: Miralax/Dulcolax Retraction Time: 8 Procedure Description: After informed consent was obtained, explaining risks of the procedure, including but not limits to: bleeding, infections, complications of anesthesia, perforations (which may require antibiotics and /or surgery and stay in the hospital), and abdominal pain/cramping. The patient was taken to the procedure room and placed in a left decubitous position. Monitors were applied and a time out was done. The patients name, date of , procedure, allergies to medications and metal in their body was reviewed. The patient was then sedated. Once sedated and comfortable a rectal exam was done. External exam was normal. Internal exam revealed a normal sphincter tone and no palpable masses. The previously lubricated Olympus scope was then introduced (see RN notes for scope number) and retrofelexed. Grade 2 x 3 columns internal hemorrhoids were identified. The scope was then advanced to the cecum without difficulty. The TI and appendiceal orifice were identified. The scope was then slowly retracted over minutes back into the 8 rectum. Polyps: None. diverticula: pt had a small amount of small mouthed diverticula in the sigmoid colon. There were no signs of active bleeding or infection. The mucosa is pink and healthy w/ a normal vascular pattern. The scope was removed, and the patient was woken up and taken back to Same day surgery in stable condition. The patient tolerated the procedure well and there were no immediate complications. Follow up: The patient should follow up in 10 years, unless they develop changes in bowel habits or other new gastrointestinal complaints. [place] Bowel Prep [place] Bowel Prep Right Colon: 3 Left Colon: 3 Transverse Colon: 3 Total Score: 9
--- NOTE | 2024-06-03 22:04 | PDOC.DSDIS_ITS ---
Date of service: 06/04/24 Discharge Plan Disposition Patient Disposition: Home Condition: Good Discharge Details Reason For Visit: colon scope Attending Provider: Chelle Pittman Primary Care Provider: Amanda Lr Home Meds and New Rx's Prescriptions: Continued timolol 0.5 % drops 1 drp ophthalmic (eye) DAILY meloxicam 15 mg tablet 15 mg PO DAILY omeprazole 40 mg Capsule,Delayed Release(Dr/Ec) 40 mg PO HS fluticasone propion-salmeterol [Advair HFA] 115-21 mcg/actuation HFA aerosol inhaler 2 puff inhalation BID bupropion HCl [Wellbutrin SR] 150 MG tablet extended release 12 hr 150 mg PO BID buspirone 15 MG tablet 15 mg PO BID tiotropium bromide [Spiriva with HandiHaler] 18 MCG capsule, w/inhalation device 18 mcg Inhalation DAILY ipratropium-albuterol 0.5 mg-3 mg(2.5 mg base)/3 mL solution for nebulization 3 ml inhalation QID PRN estradiol 1 mg/gram (0.1 %) gel in packet 1 packet transdermal DAILY levothyroxine [Synthroid] 50 MCG tablet 50 mcg PO DAILY AM loteprednol etabonate [Lotemax] 0.5 % drops,suspension 0.5 drp ophthalmic (eye) 4-8XD Patient Comments: INSTILL 1 DROP INTO RIGHT EYE DAILY tramadol 50 mg tablet 50 mg PO DIRECTED Patient Comments: TAKE 1 TO 2 TABLETS BY MOUTH TWO TIMES A DAY NEEDED FOR PAIN Discontinued bisacodyl [Dulcolax (bisacodyl)] 5 mg tablet,delayed release (DR/EC) 5 mg PO ONCE Qty: 4 0RF Rx Instructions: Take per colonoscopy instructions provided by ordering providers office polyethylene glycol 3350 17 gram/dose powder 17 g PO ONCE Qty: 238 0RF Rx Instructions: Take per colonoscopy instructions provided by ordering providers office Discharge Instructions Additional Instructions: DSU Colonoscopy Post- Op Instructions Instructions for Everyone who is given Anesthesia: For your safety, please do the following for the next twenty-four (24) hours: *Do Not operate a motor vehicle (car, truck, motorcycle, etc.) *Do Not drink alcoholic beverages or use any recreational drugs for the first 24 hours or while taking pain medications. The medications in your body may have a reaction that can be dangerous. *Do Not make any important decisions or sign any important papers. Findings: Hemorrhoids and dierticula Follow up: Repeat colonoscopy in 10 years time Of course, you should continue to have a yearly physical exam including a rectal exam. If you should ever notice any pain or difficulty having a bowel movement, blood in the stool, unexplained weight loss, or change in your bowel habits, please contact your health provider 1. No lifting over 20 pounds or strenuous activity for the first 24 hours after your procedure. After 24 hours there are no restrictions on your activity but you may feel fatigued for a few days. 2. After you arrive home you may have a light meal and return to your normal diet as you can tolerate it without feeling sick to your stomach. 3. You may have a bloated, gaseous feeling in your belly (abdomen) after a colonoscopy. Passing gas and belching will help. Walking or lying down on your left side with your knees flexed may relieve the discomfort. Call the office at [phone] (Office) or [phone] (Hospital) right away if you notice any of the following: a.Vomiting of blood or ?coffee ground stools?. b.Rectal bleeding 1Tbsp, blood clots or continuous bleeding. c.Severe belly (abdominal) pain. d.A hard distended belly (abdomen) and an inability to pass gas. 4. Please don?t expect to have a normal BM (bowel movement) for 2-3 days after your procedure. 5. If there are questions regarding the findings of your procedure, please contact your doctor 6. If you are unable to contact your doctor with a problem, contact the hospital at [phone]. 7. Continue all your regular medications unless directed otherwise. I understand the above instructions and have no questions. Signature of Patient or Adult Escort Name of Responsible Adult Escort Signature of Nurse Date/Time Activity:: see above Diet:: see above Discharge Orders Discharge Orders: Discharge Order (Routine); Ordered 06/04/24 Ordered By: Chelle Pittman DS: Diagnosis Discharge Diagnosis (1) Hemorrhoids: Status: Acute (2) Screening for malignant neoplasm of colon: Status: Acute Asessment and Plan: The patient is seen and examined after their colonoscopy.? The patient has been able to pass gas.? They are not having abdominal pain.? They have been able to tolerate liquids and a snack.? They do not have any nausea or vomiting.? They are not having any chest pain or shortness of breath.??? They are not having any rectal bleeding. Their vital signs have been stable-see nursing notes. We discussed findings during their colonoscopy, and any biopsies that were done/polyps that were removed. The patient will be sent a letter with any biopsy results, and when to repeat the colonoscopy.-see discharge instructions. Patient was given explicit instructions to follow-up regarding colonoscopy-refer to discharge instructions.? We reviewed resumption of medications. Patient verbalized understanding and discharged in stable and satisfactory condition- See nursing notes. (3) GERD (gastroesophageal reflux disease): (4) COPD (chronic obstructive pulmonary disease) with emphysema: Status: Acute (5) Tobacco dependence: Status: Acute (6) Sleep apnea: Status: Acute (7) History of total left knee replacement: Status: Acute (8) Diverticula of colon: Status: Acute
[2024-06-04 10:33] VITALS: BP 134/83; PULSE 76; RESP 16; TEMP 36.5; O2SAT 99
--- NOTE | 2024-06-04 10:43 | W.ANESPRE ---
General Info Date of Service Date Performed: 06/04/24 Height: 4 ft 10 in Weight: 64.4 kg Body Mass Index (BMI): 29.7 Surgical Procedure: Operation Date: 06/04/24 10:35 Proposed Procedure Side Surgeon fabio Pittman, DO Meds Allergies and Home Medications Allergies Allergy/AdvReac Type Severity Reaction Status Date / Time perfume Allergy SOB Verified 06/04/24 10:42 codeine AdvReac Severe Nausea/Head Verified 06/04/24 10:42 ache iron AdvReac nausea/vomi Verified 06/04/24 10:42 ting pramipexole di-HCl (From AdvReac decreased Verified 06/04/24 10:42 Mirapex) sexual function ropinirole HCl (From Requip) AdvReac nausea/vomi Verified 06/04/24 10:42 ting/headac he Home Medication ?Medication ?Instructions ?Recorded bupropion HCl 150 mg tablet,12 hr 150 mg PO BID 06/16/13 sustained-release (Wellbutrin SR) buspirone 15 mg tablet 15 mg PO BID 06/16/13 tiotropium bromide 18 mcg capsule 18 mcg inhalation DAILY 06/16/13 with inhalation device (Spiriva with HandiHaler) levothyroxine 50 mcg tablet 50 mcg PO DAILY AM 11/04/16 (Synthroid) omeprazole 40 mg capsule,delayed 40 mg PO HS 02/09/19 release timolol 0.5 % eye drops 1 drp ophthalmic (eye) DAILY 04/11/22 loteprednol etabonate 0.5 % eye 0.5 drp ophthalmic (eye) 4-8XD 08/23/22 drops,suspension (Lotemax) fluticasone propionate 115 2 puff inhalation BID 04/28/23 mcg-salmeterol 21 mcg/actuation HFA inhaler (Advair HFA) estradiol 1 mg/gram (0.1 %) 1 packet transdermal DAILY 05/13/24 transdermal gel packet ipratropium 0.5 mg-albuterol 3 mg 3 ml inhalation QID PRN 05/13/24 (2.5 mg base)/3 mL nebulization soln meloxicam 15 mg tablet 15 mg PO DAILY 05/20/24 tramadol 50 mg tablet 50 mg PO DIRECTED 01/02/25 Current Visit Medications: Current Medications Generic Name Dose Route Start Last Admin Trade Name Freq PRN Reason Stop Dose Admin Amoxicillin 2,000 mg 06/04/24 06:00 Amoxicillin 500 Mg Cap PO 07/04/24 05:59 PREOP LEILANI Hyoscyamine Sulfate 0.125 mg 06/04/24 09:56 Hyoscyamine 0.125 Mg Sl/Oral/Chew SL 07/04/24 09:55 DIRECTED PRN Ringer's Solution 1,000 mls @ 80 mls/hr 06/04/24 10:15 IV 07/04/24 10:14 [facility] IV Miscellaneous Supplies 1 each 06/04/24 06:00 Iv Access IV 06/04/24 23:59 DIRECTED LEILANI Ondansetron HCl 4 mg 06/04/24 09:56 Ondansetron 4 Mg/2 Ml Vial IVP 07/04/24 09:55 Q4H PRN PRN Nausea / Vomiting Sodium Chloride 0 ml 06/04/24 06:00 Normal Saline Flush 10 Ml Syr IV 06/04/24 23:59 PRN PRN Sodium Chloride 0 ml 06/04/24 06:00 Normal Saline 10 Ml Vial IJ 06/04/24 23:59 DIRECTED PRN Sterile Water 0 ml 06/04/24 06:00 Water,Injection,Sterile 10 Ml Vial IJ 06/04/24 23:59 DIRECTED PRN PFSH Active Problems Active Problems: Problem Status Onset Code COPD (chronic obstructive pulmonary disease) with emphysema Acute J43.9 Screening for malignant neoplasm of colon Acute Z12.11 History of total left knee replacement Acute 04/23/22 Z96.652 UTI (urinary tract infection) Acute N39.0 Hypothyroid Acute E03.9 Hypokalemia Acute E87.6 Palpitations Acute R00.2 Tobacco dependence Acute F17.200 Patellofemoral disorder Acute M22.2X9 Mitral regurgitation Chronic I34.0 Flat feet Acute M21.41, M21.42 H/O thyroidectomy Chronic E89.0 Back pain Acute M54.9 Hemorrhoids Acute K64.9 Sleep apnea Acute G47.30 Medical History Medical History Bacteremia due to Escherichia coli Knee pain, chronic Acute reaction to situational stress Abnormal cervical Papanicolaou smear TAYE (obstructive sleep apnea) Unspecified hemorrhoids with other complication Goiter Vertigo Lumbar back pain Left hip pain GERD (gastroesophageal reflux disease) Depression with anxiety Anemia Thrombocytosis Cervicalgia Dental caries Allergic rhinitis COPD (chronic obstructive pulmonary disease) Periodic limb movement Surgical History Surgical History 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 Hx of cataract surgery Hx of section S/P correction of deviated nasal septum Hx of tonsillectomy H/O partial thyroidectomy History of carpal tunnel release of both wrists Tobacco Smoking/Tobacco Use Status: Former Tobacco Use Alcohol Alcohol Intake: never Substance Use Substance use: Occasionally Substance use type: marijuana Details: QHS for sleep; edibles Vital Signs and Lab Results Vital Signs Most Recent Vital Signs in EMR: Most Recent Vital Signs Temp Pulse Resp BP Pulse Ox 36.5 C 76 16 134/83 99 06/04/24 10:33 06/04/24 10:33 06/04/24 10:33 06/04/24 10:33 06/04/24 10:33 Lab Results Blood Type / Crossmatch: No Data to Display Complete Blood Count: No Data to Display Complete Metabolic Panel: No Data to Display Liver Function Panel: No Data to Display Coagulation Panel: No Data to Display Cardiac Panel: No Data to Display Arterial Blood Gas: No Data to Display Venous Blood Gas: No Data to Display Pancreas Panel: No Data to Display Thyroid Panel: No Data to Display Infectious Disease: No Data to Display Blood Cultures: No Data to Display Toxicology Panel: No Data to Display Imaging and Studies Imaging and Studies Study information below may be from another EMR and interpreted by another provider. Please see original notes in EMR for more complete details. EKG Summary: PATIENT NAME: Lyla Payne #: [id number] ORDERING PROVIDER: Hunter Lema M.D. PRIMARY CARE PROVIDER:Jennifer Isbell RN,Bon DATE/TIME OF SERVICE: 04/11/22 1403 : 1PERFORMING LOCATION: .CARD APPROVED REPORT Exam: Resting ECG Reason for Exam: palpitations, NEWMAN Patient Location: O HR:94 bpm ECG Measurements Heart Rate 94 AXIS NE 187 P 60 QRSd 98 QRS 0 QT 371 T20 QTc 464 Conclusion Sinus rhythm...normal P axis, V-rate 50- 99 Ventricular premature complex...V complex w/ short R-R interval Otherwise normal Stress Test Summary: STRESS TEST PATIENT NAME: Lyla Payne #: [id number] ORDERING PROVIDER: Bon Leung NPACCOUNT #: [id number] PRIMARY CARE PROVIDER:Bon Leung RN DATE/TIME OF SERVICE: 03/28/22 ADMITTING PROVIDER: HUNTER LEMA MD : 1960 APPROVED REPORT Exam: Exercise Treadmill Patient Location: Out-Patient Room/Bed: Stress Nurse: Caroline Amin RN Ordering Provider:BON TALBERT, Contact Number: [phone] BMI: 29.48 Baseline Rhythm: Sinus w/ 1st degree AV block Indications: Abnormal findings of lung on DI, Occ. Palpitations, MOD Mitral Regurgitation Medical History Medical History: Anemia, COPD, Depression, Anxiety, GERD, TAYE Cardiac Medications: Omeprazole, Spiriva Inhaler Allergies: Ropinirole, perfumes, codeine, iron, pramipexole Cardiac Risk Factors: +family history, Former smoker, Obesity Previous Cardiac Procedures: None Pretest Chest Pain Characteristics: None Exercise History: Sedentary Physical Disabilities: None Lung Sounds: Clear Heart Sounds: +Murmur Stress Test Details Test: Exercise stress testing was performed using a Aroldo protocol. Rest Stress HR Resting HR Supine: 83 bpmMax Heart Rate (APMHR): 159 bpm Resting HR Standin bpmTarget HR (85% APMHR): 135 bpm Max HR Achieved: 152 bpm % of APMHR: 95 Recovery HR: 85 bpm HR response to stress: Normal HR response to stress BP Resting BP Supine: 146/82 mmHg Resting BP Standin/84 mmHg Max BP: 166/78 mmHg Recovery BP: 130/76 mmHg BP response to stress: Normal blood pressure response to stress. ECG Resting ECst degree AV block Ectopy: None Stress ECG: Sinus Tachycardia ST Change: No significant ST segment changes noted Arrhythmia: None Recovery ECst degree AV block Recovery ST Change: No significant ST segment changes noted Recovery Arrhythmia: PVC's Comment: flipped T waves 5 minutes into recovery in leads II, III, aVF, V4, V5, V6 Clinical Reason for Termination: Fatigue Stress Symptoms: General Fatigue Exercise duration: 4 min17 sec Highest Stage Reached: Stage 2: 2.5 mph at 12% grade. Exercise capacity: 6.17 METs Corrigan Treadmill Score: 3.2 Rate Pressure Product: [id number] Stress ECG Conclusion 1. Resting electrocardiogram showed first-degree AV block, left ventricular hypertrophy 2. Patient exercised on the Aroldo protocol and completed a workload of 6.17 METS stopping due to fatigue 3. Normal heart rate and blood pressure response to exercise. Patient achieved 95% of predicted heart rate for age 4. There was no electrocardiographic evidence of myocardial ischemia at peak exercise. ST segments in recovery became downsloping, equivocal for ischemia 5. There were no significant dysrhythmias Corrigan Treadmill Score is 3.2 which is Moderate risk. Echocardiogram Summary: Patient Name: Lyla Payne #: [id number]: [id number] Ordering Provider: Aminta Chao #: [id number]: STANLEY Mu Primary Care Provider: Bon Isbell NPDate of Exam: 07/04/21Sex: F Admission Date: 07/04/21 : 1960 Age: 60 APPROVED REPORT EXAM: Comprehensive 2D, Doppler, and color-flow Echocardiogram Patient Location: Out-Patient Robotic Machine Operator: Zaynab Puckett RDCS (AE) Indications: Heart Murmur Other Information Study Quality: Adequate Conclusion Normal left ventricular wall thickness and chamber size. Estimated ejection fraction is 60%. Wall motion is normal Normal right ventricular size and systolic function Both atria are normal in size Trileaflet aortic valve without stenosis or regurgitation Moderate mitral annular calcification. Moderate mitral regurgitation Normal tricuspid valve with trace regurgitation. Right ventricular systolic pressure could not be estimated Mildly dilated ascending aorta measuring 3.62 cm Pulmonary Function Summary: Date of service: 04/02/24 Time of Service: 13:02 Pulmonary Function Test Result Indications: COPD Interpretation Spirometry: There is moderate airflow limitation. No bronchodilator response. Lung Volumes: There is air trapping. Diffusion Capacity: Decreased diffusion Airway Pressure: Normal airways resistance Impression Moderate airflow obstruction, air trapping and a decreased diffusion. This could be consistent with COPD with emphysema. Clinical Correlation therefore is recommended. Anesthesia Assessment and Plan Anesthesia History Personal History: No History of Anesthesia Complications Family History: No Family History of Anesthesia Complications Exercise Tolerance Exercise Tolerance: Metabolic Equivalents<4 Pertinent Negatives Pertinent Negatives: No Symptoms of GERD, No Major Cardiovascular Symptoms or Complaints, No Major Pulmonary Symptoms or Complaints and No History of CVA/TIA Cardiac & Pulmonary Exam Cardiac Exam: Normal S1/S2 Heart Sounds and Heart Murmur Present Pulmonary Exam: Clear Bilateral Breath Sounds Cardiac and Pulmonary Comment:: TAYE no CPAP Implantable Cardiac Device Does patient have a Pacemaker or an ICD?: No Airway Exam Known Difficult Airway: No Mallampati Class: 3 Mouth Opening: Normal (> 3cm) Thyromental Distance: Greater than 3 cm Neck Range of Motion: Full ROM Neck Circumference: Normal Teeth Condition: Generalized Poor Dentition and Edentulous (Upper, lower missing several) ASA Classification ASA Score: ASA 3 Emergency Case?: No NPO Status NPO Status: NPO Clears >2 hours, Solids >8 hours Anesthesia Plan Resuscitation Status: Full Code Anesthesia Technique: General Anesthesia Airway Planned: Natural Airway Monitors Used: Standard Monitors Preoperative Comments:: 63 y/o female with history of TAYE, GERD, COPD and hypothryroidism presents for colonoscopy screening. Her last screening was in 2013, which was unremarkable.
[2024-06-04 11:02] VITALS: BMI 29.7
[2024-06-04] MEDS: Lactated Ringers 1,000 ML 80 ML IV (11:04)
[2024-06-04] MEDS: Amoxicillin 500 MG CAP 2000 MG PO (11:06)
[2024-06-04 12:27] VITALS: BP 111/85; PULSE 78; RESP 16; TEMP 36.3; O2SAT 98
--- NOTE | 2024-06-04 12:36 | PDOC.DSDIS_ITS ---
Date of service: 06/04/24 Discharge Plan Disposition Patient Disposition: Home Condition: Good Discharge Details Reason For Visit: colon scope Attending Provider: Chelle Pittman Primary Care Provider: Amanda Lr Home Meds and New Rx's Prescriptions: Continued timolol 0.5 % drops 1 drp ophthalmic (eye) DAILY meloxicam 15 mg tablet 15 mg PO DAILY omeprazole 40 mg Capsule,Delayed Release(Dr/Ec) 40 mg PO HS fluticasone propion-salmeterol [Advair HFA] 115-21 mcg/actuation HFA aerosol inhaler 2 puff inhalation BID bupropion HCl [Wellbutrin SR] 150 MG tablet extended release 12 hr 150 mg PO BID buspirone 15 MG tablet 15 mg PO BID tiotropium bromide [Spiriva with HandiHaler] 18 MCG capsule, w/inhalation device 18 mcg Inhalation DAILY ipratropium-albuterol 0.5 mg-3 mg(2.5 mg base)/3 mL solution for nebulization 3 ml inhalation QID PRN estradiol 1 mg/gram (0.1 %) gel in packet 1 packet transdermal DAILY levothyroxine [Synthroid] 50 MCG tablet 50 mcg PO DAILY AM loteprednol etabonate [Lotemax] 0.5 % drops,suspension 0.5 drp ophthalmic (eye) 4-8XD Patient Comments: INSTILL 1 DROP INTO RIGHT EYE DAILY tramadol 50 mg tablet 50 mg PO DIRECTED Patient Comments: TAKE 1 TO 2 TABLETS BY MOUTH TWO TIMES A DAY NEEDED FOR PAIN Discontinued bisacodyl [Dulcolax (bisacodyl)] 5 mg tablet,delayed release (DR/EC) 5 mg PO ONCE Qty: 4 0RF Rx Instructions: Take per colonoscopy instructions provided by ordering providers office polyethylene glycol 3350 17 gram/dose powder 17 g PO ONCE Qty: 238 0RF Rx Instructions: Take per colonoscopy instructions provided by ordering providers office Discharge Instructions Additional Instructions: DSU Colonoscopy Post- Op Instructions Instructions for Everyone who is given Anesthesia: For your safety, please do the following for the next twenty-four (24) hours: *Do Not operate a motor vehicle (car, truck, motorcycle, etc.) *Do Not drink alcoholic beverages or use any recreational drugs for the first 24 hours or while taking pain medications. The medications in your body may have a reaction that can be dangerous. *Do Not make any important decisions or sign any important papers. Findings: Hemorrhoids and dierticula-make sure you are moving your bowels on a regular basis and not straining. If you find you are having problems with constipation/straining then it is recommended you start a fiber product daily such as Metamucil. Follow up: Repeat colonoscopy in 10 years time Of course, you should continue to have a yearly physical exam including a rectal exam. If you should ever notice any pain or difficulty having a bowel movement, blood in the stool, unexplained weight loss, or change in your bowel habits, please contact your health provider 1. No lifting over 20 pounds or strenuous activity for the first 24 hours after your procedure. After 24 hours there are no restrictions on your activity but you may feel fatigued for a few days. 2. After you arrive home you may have a light meal and return to your normal diet as you can tolerate it without feeling sick to your stomach. 3. You may have a bloated, gaseous feeling in your belly (abdomen) after a colonoscopy. Passing gas and belching will help. Walking or lying down on your left side with your knees flexed may relieve the discomfort. Call the office at [phone] (Office) or [phone] (Hospital) right away if you notice any of the following: a.Vomiting of blood or ?coffee ground stools?. b.Rectal bleeding 1Tbsp, blood clots or continuous bleeding. c.Severe belly (abdominal) pain. d.A hard distended belly (abdomen) and an inability to pass gas. 4. Please don?t expect to have a normal BM (bowel movement) for 2-3 days after your procedure. 5. If there are questions regarding the findings of your procedure, please contact your doctor 6. If you are unable to contact your doctor with a problem, contact the hospital at [phone]. 7. Continue all your regular medications unless directed otherwise. I understand the above instructions and have no questions. Signature of Patient or Adult Escort Name of Responsible Adult Escort Signature of Nurse Date/Time Activity:: see above Diet:: see above Discharge Orders Discharge Orders: Discharge Order (Routine); Ordered 06/04/24 Ordered By: Chelle Pittman DS: Diagnosis Discharge Diagnosis (1) Hemorrhoids: Status: Acute (2) Screening for malignant neoplasm of colon: Status: Acute (3) GERD (gastroesophageal reflux disease): (4) COPD (chronic obstructive pulmonary disease) with emphysema: Status: Acute (5) Tobacco dependence: Status: Acute (6) Sleep apnea: Status: Acute (7) History of total left knee replacement: Status: Acute (8) Diverticula of colon: Status: Acute
[2024-06-04 12:55] VITALS: BP 122/73; PULSE 74; RESP 16; TEMP 36.4; O2SAT 99
--- NOTE | 2024-06-04 17:47 | W.ANESPOSTOP ---
Postoperative Evaluation Date, Time and Location Date Performed: 06/04/24 Time Performed: 12:55 Patient Location: Day Surgery Unit Vital Signs Most Recent Imported Vital Signs: Most Recent Vital Signs Temp Pulse Resp BP Pulse Ox 36.4 C L 74 16 122/73 99 06/04/24 12:55 06/04/24 12:55 06/04/24 12:55 06/04/24 12:55 06/04/24 12:55 Pain Score Most Recent Pain Score: Most Recent Pain Score Pain Level 0 06/04/24 12:55 Assessment Mental Status: Awake (Alert & Oriented to Patient Baseline) Airway and Respiratory Function: Patent airway with normal (patient baseline) respiratory exam Cardiovascular Function: Hemodynamically Stable Hydration Status: Adequately Hydrated Nausea & Vomiting: No Nausea or Vomiting Pain: Pt. Denies Any Pain Peripheral Nerve Block: Patient did not receive a nerve block
== END 2024-06-04 13:55 | disposition home or self-care (01) ==
LOC: SUR 10:15
PROVIDERS: PCP Nurse Practitioner Family; Visit Provider Surgery
PROC: 0DJD8ZZ Inspection of Lower Intestinal Tract, Via Natural or Artificial Opening Endoscopic (ICD-10-PCS; CPT 45378; principal; 2024-06-04 10:30)
DX: K64.9 Unspecified hemorrhoids (principal); Z12.11 Encounter for screening for malignant neoplasm of colon; K57.30 Diverticulosis of large intestine without perforation or abscess without bleeding
CPT/HCPCS: 45378; J2003; J2704

== ENCOUNTER 2024-11-08 21:40 | Outpatient (REF) | payer MEDICAID, SELFPAY ==
[2024-11-08 22:31] LABS: Ferritin 39 ng/mL (8-252); TSH (W/Ref FT4) 3.47 uIU/mL (0.36-3.74)
== END 2024-11-08 21:41 | disposition home or self-care (01) ==
LOC: NCHCN 21:40
PROVIDERS: PCP Nurse Practitioner Family; Visit Provider Family Medicine
DX: E03.8 Other specified hypothyroidism (principal); G25.81 Restless legs syndrome
CPT/HCPCS: 82728; 84443

== ENCOUNTER 2024-12-09 01:13 | Outpatient (CLI) | payer MEDICAID, SELFPAY ==
--- NOTE | 2024-12-09 | DI.RAD_ITS ---
Exam(s) XR SHOULDER RT COMPLETE 2+V EXAM: XR SHOULDER RT COMPLETE 2+V CLINICAL HISTORY: PAIN, JOINT, SHOULDER, RIGHT M25.511. TECHNIQUE: 2D digital imaging was performed. Five views. COMPARISON: No exams were available for comparison FINDINGS: BONES: No acute fracture is present. No bony destructive lesion is seen. Remodeling of the undersurface of the acromion with periarticular spurring of the acromion and adjacent humeral head. JOINTS: The humeral head is superiorly located, articulating with the undersurface of the acromion, consistent with chronic rotator cuff tear. Severe degenerative changes at the glenohumeral joint, with a [id number] appearance. SOFT TISSUE: Normal. IMPRESSION: Severe degenerative changes and chronic rotator cuff tear. DATA REPOSITORY: RADIATION DOSE DELIVERED:
== END 2024-12-09 01:33 ==
LOC: DI 01:14
PROVIDERS: PCP Family Medicine; Visit Provider Family Medicine
DX: M75.121 Complete rotator cuff tear or rupture of right shoulder, not specified as traumatic (principal)
CPT/HCPCS: 73030

== ENCOUNTER 2025-05-02 21:21 | Outpatient (REF) | payer MEDICAID, SELFPAY ==
[2025-05-02 22:02] LABS: HCT 37.2 % (36.0-46.0); HGB 11.9 g/dL (11.2-15.7); MCH 30.4 pg (27.0-33.0); MCHC 32.0 % (32.0-36.0); MCV 95 fL (80-95); MPV 10.1 fL (8.0-11.0); Platelet Count 286 10^3/uL (130-400); RBC 3.92 10^6/uL (3.93-5.22); RDW 13.4 % (11.7-14.6); RDW-SD 46.7 fL; WBC 6.55 10^3/uL (4.4-10.8)
[2025-05-02 22:24] LABS: Ferritin 48 ng/mL (7-271)
[2025-05-02 22:30] LABS: Anion Gap 9.2 mmol/L (3-11); BUN 22 mg/dL (9-23); CO2 24.8 mmol/L (20.0-31.0); Calcium 9.3 mg/dL (8.3-10.6); Chloride 109 mmol/L (98-107); Glucose 87 mg/dL (74-106); Potassium 4.4 mmol/L (3.5-5.1); Sodium 143 mmol/L (136-145); TSH (W/Ref FT4) 3.44 uIU/mL (0.55-4.78)
== END 2025-05-02 21:22 | disposition home or self-care (01) ==
LOC: NCHCN 21:21
PROVIDERS: PCP Family Medicine; Visit Provider Family Medicine
DX: R06.09 Other forms of dyspnea (principal); D64.9 Anemia, unspecified; E03.9 Hypothyroidism, unspecified
CPT/HCPCS: 80048; 85027; 82728; 84443

== ENCOUNTER → 2025-05-18 00:07 | Outpatient (CLI) | payer MEDICAID, SELFPAY ==
--- NOTE | 2025-05-18 14:35 | DI.US_ITS ---
APPROVED REPORT EXAM: Comprehensive 2D, Doppler, and color-flow Echocardiogram Patient Location: Out-Patient Mgmt Specialist: Zaynab Puckett RDCS (AE) Indications: Mitral valve regurgitation, worsening [place]MAN Other Information Study Quality: Adequate Conclusion Normal left ventricular wall thickness and chamber size. Ejection fraction is 60 to 65%. Wall motion is normal Normal right ventricular size and function Both atria are enlarged. There is an ASD/PFO with [id number] flow Trileaflet aortic valve without stenosis or regurgitation Mild mitral annular calcification. Posterior leaflet prolapse. Moderate to severe eccentric mitral regurgitation Mildly dilated ascending aorta measuring 3.5 cm Wall motion Left Ventricle Left ventricle is mildly dilated. The overall left ventricular systolic function appears normal. There is normal left ventricular wall thickness. There is normal LV segmental wall motion. There is no ventricular septal defect visualized. LVEF is 60%. Right Ventricle The right ventricle is normal size. The right ventricular systolic function is normal. Atria Left atrium is severely dilated. Right atrium is mildly dilated. Doppler suggests left to right interatrial shunt. Aortic Valve The aortic valve is normal in structure. Aortic valve is trileaflet. There is no aortic valvular stenosis. No aortic regurgitation is present. Mitral Valve Mild mitral annular calcification. No evidence of mitral valve stenosis. Moderate to severe mitral regurgitation Mitral regurgitation jet is eccentrically directed. Mild prolapse of the posterior mitral valve leaflet. Tricuspid Valve The tricuspid valve is normal in structure. There is no tricuspid valve stenosis. Trace tricuspid regurgitation. Unable to assess PA pressure. Pulmonic Valve The pulmonary valve is normal in structure. There is no pulmonic valvular stenosis. Trace pulmonic regurgitation. Great Vessels The aortic root is normal in size. The ascending aorta is mildly dilated. Aortic arch is normal in caliber. IVC is normal in size and collapses >50% with inspiration. Pericardium There is no pericardial effusion. 2D Dimensions IVSD d PLAX 0.90 cm F: 0.6-1.0 Ao Root d 2.70 cm F: 2.7 - 3.3 LVPW d PLAX 0.90 cm F: 0.6 - 1.0 Ao Asc Diam d 3.50 cm F: 2.3 - 3.1 LVID d PLAX 5.42 cm F: 3.8 - 5.2 LVDs 3.78 cm F: 2.2 - 3.5 LV EF Teichholz 57.1 % FS 30.28 % LV EDV (Teich) 142.3 mL LV ESV (Teich) 61.0 mL M-Mode TAPSE 2.60 cm (M/F) >1.7 Auto EF LV EDV A4C 162.0 mL LV EDV A2C 133.2 mL LV EDV BP 152.0 mL LV ESV A4C 64.8 mL LV ESV A2C 52.9 mL LV ESV BP 58.1 mL LVEF(%) A4C 60.0 % LVEF(%) A2C 60.3 % LVEF(%) BP 61.8 % LV SV A4C 97.2 ml LV SV A2C 80.3 ml LV SV BP 93.9 ml LV CO A4C 6.9 L/min LV CO A2C 5.8 L/min LV CO BP 6.4 L/min HR A4C 70.73 BPM HR A2C 72.70 BPM LV EDV Index (BP) LA Volume LA Length A4C 6.0 cm LA Length A2C 5.9 cm LA Area A4C s 33.00 cm2 LA Area A2C s 28.13 cm2 LA Vol A4C A-L 154.93 mL LA Vol A2C A-L 113.01 mL LA Vol Biplane A-L 132.6 mL LA Vol/BSA A4C A-L LA Vol/BSA A2C A-L LA Vol/BSA BP A-L 83.4 mL/m2 LA Vol A4C MOD 147.4 mL LA Vol A2C MOD 105.2 mL LA Vol BP MOD 124.2 mL RA Volume RA Area A4C 13.6 cm2 RA ESV A4C (A-L) 35.1mL RA Vol/BSA A4C A-L RA Length A4C 4.5 cm RA ESV A4C (MOD) 33.8mL LV Diastology MV E' medial 0.113 (>0.07 m/s) MV E Vmax 1.51 (0.4-1.3 m/s) MV E/E' MED 13.29 (<14) MV A Vmax 0.80 (0.4-1.3 m/s) MV E' lateral 0.123 (>0.1 m/s) E/A Ratio 1.9 MV E/E' LAT 12.23 (<14) MV E' Average 0.118 m/s MV E/E'(average) 12.74 Aortic Valve AoV Vmax 1.02 m/s LVOT Vmax 0.94 m/s AoV Peak Grad 4.2 mmHg LVOT Peak Grad 3.5 mmHg AoV Area (Vmax) 2.67 cm2 LVOT VTI 0.194 m AoV VTI 0.190 m LVOT Mean Grad 1.5 mmHg AoV Mean Gasper. 0.67 m/s LVOT SV 56.45 mL AoV Mean Grad 2.1 mmHg LVOT Diam s 1.90 cm AoV Area (VTI) 2.97 cm2 AV Regurg Peak Gr. 4.19 mmHg Velocity Ratio 0.92 Mitral Valve MV DT 156 (160-240 msec) MR Vmax 5.54 m/s MV Vmax TIPS 1.52 m/s MR VTI 1.715 m MV Mean Grad 3.0 (<2mmHg) MR Peak Grad 122.8 mmHg MV VTI 0.389 m MR Mean Grad 85.9 mmHg Pulmonary Valve PV Vmax 0.93 (0.5-1.5 m/s) RVOT Vmax 0.74 m/s PV Peak Grad 3.5 mmHg RVOT Peak Gr. 2.2 mmHg PV Mean Gasper 0.66 m/s RVOT VTI 0.139 m PV Mean Grad 2.0 mmHg RVOT Mean Gr. 1.2 mmHg Tricuspid Valve TV S' 0.13 m/s
== END ==
PROVIDERS: PCP Family Medicine; Visit Provider Family Medicine
DX: I08.3 Combined rheumatic disorders of mitral, aortic and tricuspid valves; R06.09 Other forms of dyspnea
CPT/HCPCS: 93306